=== PATIENT | male | born 1985 | race African-American/Black ===

== ENCOUNTER 2019-06-19 15:53 | Inpatient (IN) ==
[2019-06-19] MEDS ORDERED: ONDANSETRON 4 MG/2 ML VIAL IV PRN (20:06)
[2019-06-19] MEDS ORDERED: ACETAMINOPHEN 325 MG TABLET PO PRN (20:06)
[2019-06-19] MEDS ORDERED: FUROSEMIDE 40 MG/4 ML VIAL ONE (20:09)
[2019-06-19] MEDS ORDERED: FUROSEMIDE 40 MG/4 ML VIAL IV ONE ×2 (20:11→20:20)
[2019-06-19] MEDS: ALBUTEROL/IPRATROPIUM 3 ML NEB RESP TX SCH ×2 (20:15→23:30)
[2019-06-19] MEDS ORDERED: MORPHINE 4 MG/1 ML VIAL ONE (20:29)
[2019-06-19] MEDS ORDERED: MORPHINE 4 MG/1 ML VIAL IV ONE ×2 (20:30)
[2019-06-19] MEDS ORDERED: hydrALAZINE 20 MG/1 ML VIAL IV PRN (20:40)
[2019-06-19] MEDS ORDERED: NITROGLYCERIN DRIP 50 MG/250 ML BOTTLE IV ONE (20:52)
[2019-06-19] MEDS ORDERED: METOCLOPRAMIDE 10 MG/2 ML VIAL ONE (20:53)
[2019-06-19] MEDS ORDERED: cefTRIAXone 2,000 MG in SYRINGE 1 EACH IV SCH (21:00)
[2019-06-19] MEDS ORDERED: PROMETHAZINE 25 MG/1 ML VIAL IM ONE (21:04)
[2019-06-19] MEDS ORDERED: METOCLOPRAMIDE 10 MG/2 ML VIAL IV ONE (21:04)
[2019-06-19] MEDS ORDERED: NITROGLYCERIN DRIP 50 MG/250 ML BOTTLE IV PRN (21:04)
[2019-06-19] MEDS ORDERED: PROMETHAZINE 25 MG/1 ML VIAL ONE (21:05)
[2019-06-19] MEDS ORDERED: VECURONIUM 10 MG VIAL IV ONE (21:09)
[2019-06-19] MEDS ORDERED: ETOMIDATE 20 MG/10 ML VIAL IV ONE (21:09)
[2019-06-19] MEDS: PROPOFOL 1,000 MG/100 ML BOTTLE IV SCH (21:32)
[2019-06-19] MEDS ORDERED: PROPOFOL 1,000 MG/100 ML BOTTLE IV ONE (21:34)
[2019-06-19] MEDS ORDERED: PROPOFOL 200 MG/20 ML VIAL IV ONE (21:38)
[2019-06-19 21:58] LABS: Basophils # 0.1 10*3/uL (0.0-0.2); Basophils % 0.5 % (0.0-0.8); Hematocrit 31.3 VOL% (42.0-52.0); Hemoglobin 9.1 GM/DL (14.0-18.0); Immature Granulocytes % 1.8 %; Immature Granulocytes Absolute 0.19 #; Lymphocytes # 2.5 10*3/uL (1.4-4.0); Lymphocytes % 23.6 % (21.2-54.2); Mean Corpuscular HGB Conc 29.1 GM/DL (32-36); Mean Platelet Volume 11.2 FL (9.6-12.0); NRBC # 0.23 10*3/uL; Neutrophils % 69.1 % (38.7-73.9); Platelet Count 163 T/CUMM (130-400); Red Blood Count 3.04 MC/CUMM (3.8-5.5); Red Cell Distribution Width 15.6 % (9.3-17.3); White Blood Count 10.7 T/CUMM (4-12)
[2019-06-19] MEDS ORDERED: AZITHROMYCIN INJ 500 MG in SODIUM CHLORIDE 0.9% 250 ML IV SCH (22:00)
[2019-06-19] MEDS ORDERED: PIPERACILLIN/TAZOBACTAM 2,250 MG in SODIUM CHLORIDE 0.9% 100 ML IV SCH (22:00)
[2019-06-19 22:12] LABS: ABG Base Excess -11.4 MMOL/L (-2.5-2.5); ABG HCO3 15.5 MMOL/L (20-26); ABG Oxygen Saturation 96.6 % (95-100); ABG TCO2 19.5 MMOL/L (23-27); Allen Test Positive; Pt O2 Delivery Device Ventilator
[2019-06-19 22:16] LABS: ABG PH 7.063 (7.35-7.45)
[2019-06-19 22:17] LABS: ABG PCO2 71.6 MM HG (35-48)
[2019-06-19 22:28] LABS: Albumin 2.7 G/DL (3.4-5.0); Bilirubin,Total 0.5 MG/DL (0.2-1.0); Calcium 7.5 MG/DL (8.5-10.1); Osmolality,Calculated 299.5 MOS/KG (273-304)
[2019-06-19] MEDS ORDERED: DILTIAZEM 25 MG/5 ML VIAL IV ONE ×2 (22:43→23:00)
[2019-06-19] MEDS ORDERED: SODIUM BICARBONATE 50 MEQ/50 ML VIAL IV ONE (22:43)
[2019-06-19] MEDS: HEPARIN 5,000 UNIT/1 ML VIAL SUBCUT SCH (22:53)
[2019-06-19 22:57] LABS: ABG Base Excess 0.7 MMOL/L (-2.5-2.5); ABG Oxygen Saturation 94.6 % (95-100); ABG PH 7.212 (7.35-7.45); ABG PO2 97.2 MM HG (80-95); ABG TCO2 28.6 MMOL/L (23-27)
[2019-06-19 22:59] LABS: ABG PCO2 74.2 MM HG (35-48)
[2019-06-19] MEDS: PIPERACILLIN/TAZOBACTAM 3,375 MG in SODIUM CHLORIDE 0.9% 100 ML IV SCH (23:01)
[2019-06-19] MEDS ORDERED: PHENYLEPHRINE INJ 160 MG in SODIUM CHLORIDE 0.9% 234 ML IV PRN (23:19)
[2019-06-19] MEDS ORDERED: PHENYLEPHRINE DRIP 40 MG/250 ML PREMIX IV ONE (23:19)
[2019-06-19] MEDS ORDERED: PHENYLEPHRINE DRIP 40 MG/250 ML PREMIX IV PRN (23:19)
[2019-06-19] MEDS ORDERED: NOREPINEPHRINE 4 MG/4 ML VIAL IV ONE (23:23)
[2019-06-19] MEDS ORDERED: EPINEPHrine 1 MG/10 ML SYRINGE ONE (23:23)
[2019-06-19] MEDS: NOREPINEPHRINE 16 MG in SODIUM CHLORIDE 0.9% 234 ML IV PRN (23:25)
[2019-06-19] MEDS ORDERED: EPINEPHrine 1 MG/ML VIAL ONE (23:25)
[2019-06-19] MEDS ORDERED: MIDAZOLAM 10 MG/2 ML VIAL ONE (23:37)
[2019-06-19] MEDS ORDERED: ALBUMIN 25% 25 GM in PREMIX 1 EACH IV ONE (23:42)
[2019-06-20] MEDS ORDERED: ATROPINE 1 MG/10 ML SYRINGE IV ONE (00:08)
[2019-06-20] MEDS ORDERED: SODIUM BICARBONATE 50 MEQ/50 ML VIAL IV ONE ×4 (00:08→05:57)
[2019-06-20] MEDS ORDERED: MIDAZOLAM 10 MG/2 ML VIAL IV ONE (00:11)
[2019-06-20] MEDS ORDERED: CALCIUM CHLORIDE 1,000 MG/10 ML SYRINGE IV ONE ×3 (00:11→06:53)
[2019-06-20 00:28] LABS: ABG Base Excess -2.6 MMOL/L (-2.5-2.5); ABG HCO3 24.1 MMOL/L (20-26); ABG Oxygen Saturation 90.2 % (95-100); ABG PCO2 51.8 MM HG (35-48); ABG PH 7.286 (7.35-7.45); ABG PO2 76.6 MM HG (80-95); ABG TCO2 25.7 MMOL/L (23-27)
[2019-06-20] MEDS ORDERED: AMIODARONE INJ 150 MG in DEXTROSE 5% 100 ML IV ONE (01:00)
[2019-06-20] MEDS ORDERED: AMIODARONE INJ 450 MG in DEXTROSE 5% 241 ML IV SCH ×4 (01:10→23:30)
[2019-06-20] MEDS: methylPREDNISolone SOD SUC 40 MG/1 ML VIAL IV SCH ×2 (01:20→12:51)
[2019-06-20] MEDS ORDERED: VANCOMYCIN INJ 1,000 MG in SODIUM CHLORIDE 0.9% 250 ML IV ONE (01:30)
[2019-06-20] MEDS ORDERED: SULFAMETH/TRIMETH INJ 200 MG in DEXTROSE 5% 250 ML IV SCH (02:00)
[2019-06-20] MEDS: ALBUTEROL/IPRATROPIUM 3 ML NEB RESP TX SCH ×6 (02:24→23:12)
[2019-06-20 03:38] LABS: ABG Base Excess -3.9 MMOL/L (-2.5-2.5); ABG HCO3 21.1 MMOL/L (20-26); ABG Oxygen Saturation 98.9 % (95-100); ABG PCO2 37.9 MM HG (35-48); ABG PH 7.364 (7.35-7.45); ABG PO2 283.1 MM HG (80-95); ABG TCO2 22.3 MMOL/L (23-27)
[2019-06-20 03:43] LABS: Basophils % 0.2 % (0.0-0.8); Hematocrit 25.1 VOL% (42.0-52.0); Hemoglobin 7.8 GM/DL (14.0-18.0); Immature Granulocytes % 5.2 %; Immature Granulocytes Absolute 0.68 #; Lymphocytes # 0.8 10*3/uL (1.4-4.0); Lymphocytes % 6.1 % (21.2-54.2); Mean Corpuscular HGB Conc 31.1 GM/DL (32-36); Mean Corpuscular Volume 99.2 FL (87-102); Mean Platelet Volume 11.2 FL (9.6-12.0); Monocytes % 6.1 % (1.7-12.7); NRBC # 0.39 10*3/uL; Neutrophils % 82.4 % (38.7-73.9); Platelet Count 134 T/CUMM (130-400); Red Blood Count 2.53 MC/CUMM (3.8-5.5); Red Cell Distribution Width 15.3 % (9.3-17.3)
[2019-06-20 04:03] LABS: Band Neutrophils 2 % (0-10); Lymphocytes 1 % (20-55); Nucleated Red Blood Cells 6 (0-5); Segmented Neutrophils 89 % (50-85); Total Cells Counted 100
[2019-06-20 04:04] LABS: Hypochromasia 1+; Macrocytosis Slight; Ovalocytes Slight; Platelet Estimate Normal
[2019-06-20 04:43] LABS: Calcium 7.7 MG/DL (8.5-10.1); Osmolality,Calculated 300.8 MOS/KG (273-304)
[2019-06-20] MEDS ORDERED: CALCIUM GLUCONATE 1,000 MG/10 ML VIAL IV ONE (04:49)
[2019-06-20] MEDS ORDERED: SODIUM CHLORIDE 0.9% 0 ML IV ONE (04:50)
[2019-06-20] MEDS ORDERED: DEXTROSE 5% IV ONE (06:00)
[2019-06-20] MEDS ORDERED: INSULIN REGULAR IV ONE (06:00)
[2019-06-20] MEDS ORDERED: SODIUM BICARB IV ONE (06:00)
[2019-06-20] MEDS ORDERED: NACL 0.45% IV ONE (06:00)
[2019-06-20] MEDS: PROPOFOL 1,000 MG/100 ML BOTTLE IV SCH ×5 (06:01→23:52)
[2019-06-20] MEDS: HEPARIN 5,000 UNIT/1 ML VIAL SUBCUT SCH ×3 (06:17→13:34)
[2019-06-20] MEDS: NOREPINEPHRINE 16 MG in SODIUM CHLORIDE 0.9% 234 ML IV PRN (08:15)
[2019-06-20] MEDS ORDERED: ASPIRIN EC 81 MG TABLET PO SCH (09:00)
[2019-06-20 09:07] LABS: Hepatitis B Core IgM Quant 0.17 Index; Hepatitis B Surface Ag Quant < 0.10 Index; Hepatitis B Surface Ag Result Negative (Negative); Hepatitis C Virus Ab Quant < 0.02 Index; Hepatitis C Virus Ab Result Negative (Negative)
[2019-06-20] MEDS: PIPERACILLIN/TAZOBACTAM 3,375 MG in SODIUM CHLORIDE 0.9% 100 ML IV SCH ×2 (10:37→22:23)
[2019-06-20] MEDS: ASPIRIN CHEW 81 MG TABLET PO SCH (10:37)
[2019-06-20] MEDS ORDERED: DEXTROSE 50% 25 GM/50 ML VIAL IV PRN (14:51)
[2019-06-20] MEDS ORDERED: GLUCAGON 1 MG VIAL IM PRN (14:51)
[2019-06-20] MEDS: INSULIN REGULAR 100 UNIT/ML SUBCUT SCH (17:42)
[2019-06-20] MEDS ORDERED: LORazepam 2 MG/1 ML VIAL IV PRN (23:47)
[2019-06-21] MEDS: INSULIN REGULAR 100 UNIT/ML SUBCUT SCH ×4 (01:02→18:28)
[2019-06-21] MEDS: methylPREDNISolone SOD SUC 40 MG/1 ML VIAL IV SCH ×2 (01:32→14:01)
[2019-06-21] MEDS: HEPARIN 5,000 UNIT/1 ML VIAL SUBCUT SCH ×2 (02:21→13:53)
[2019-06-21] MEDS: ALBUTEROL/IPRATROPIUM 3 ML NEB RESP TX SCH ×6 (02:27→23:30)
[2019-06-21 03:23] LABS: Basophils % 0.2 % (0.0-0.8); Hematocrit 27.7 VOL% (42.0-52.0); Immature Granulocytes Absolute 0.32 #; Lymphocytes # 0.9 10*3/uL (1.4-4.0); Lymphocytes % 5.8 % (21.2-54.2); Mean Corpuscular HGB Conc 32.5 GM/DL (32-36); Mean Corpuscular Volume 93.9 FL (87-102); Mean Platelet Volume 10.9 FL (9.6-12.0); Monocytes % 3.8 % (1.7-12.7); NRBC # 0.77 10*3/uL; Neutrophils % 88.2 % (38.7-73.9); Red Blood Count 2.95 MC/CUMM (3.8-5.5); Red Cell Distribution Width 16.6 % (9.3-17.3); White Blood Count 15.9 T/CUMM (4-12)
[2019-06-21 03:26] LABS: ABG Base Excess -1.1 MMOL/L (-2.5-2.5); ABG HCO3 22.7 MMOL/L (20-26); ABG Oxygen Saturation 98.9 % (95-100); ABG PCO2 35.1 MM HG (35-48); ABG PH 7.429 (7.35-7.45); ABG PO2 232.3 MM HG (80-95); ABG TCO2 23.8 MMOL/L (23-27)
[2019-06-21 03:37] LABS: Platelet Count 79 T/CUMM (130-400)
[2019-06-21 03:46] LABS: Calcium 7.7 MG/DL (8.5-10.1)
[2019-06-21] MEDS: PROPOFOL 1,000 MG/100 ML BOTTLE IV SCH ×8 (04:00→23:50)
[2019-06-21] MEDS ORDERED: SODIUM BICARBONATE 50 MEQ/50 ML VIAL IV ONE (04:06)
[2019-06-21] MEDS ORDERED: CALCIUM CHLORIDE 1,000 MG/10 ML SYRINGE IV ONE (04:09)
[2019-06-21 04:17] LABS: Platelet Estimate Decreased
[2019-06-21 04:19] LABS: Hypochromasia Slight; Polychromasia Few
[2019-06-21 04:21] LABS: Prealbumin 25.4 MG/DL (20-40)
[2019-06-21 05:16] LABS: Amorphous Crystals,Urine Occasional /HPF (Few); Bacteria,Urine Occasional /HPF (Few); Bilirubin,Urine Negative (Negative); Blood, Urine Moderate mg/dL (Negative); Glucose,Urine (UA) 50 mg/dL (Negative); Ketones,Urine Negative (Negative); Mucus,Urine Occasional /LPF (Occasional); Nitrite,Urine Negative (Negative); Protein,Urine >=500 MG/DL; RBC,Urine 13 /HPF (0-4); Squamous Epithelial Cell,Urine Occasional /HPF (0-10); Urine Specific Gravity 1.034 (1.001-1.035); Urine Urobilinogen < 2.0 EU/DL (0.2-1.0); WBC,Urine 12 /HPF (0-6)
[2019-06-21 05:28] LABS: Apearance,Urine Slightly Hazy (Clear); Urine Color Yellow (Yellow)
[2019-06-21] MEDS ORDERED: LORazepam 2 MG/1 ML VIAL ONE (08:39)
[2019-06-21] MEDS: PIPERACILLIN/TAZOBACTAM 3,375 MG in SODIUM CHLORIDE 0.9% 100 ML IV SCH ×2 (09:27→22:35)
[2019-06-21] MEDS: ASPIRIN CHEW 81 MG TABLET PO SCH (09:27)
[2019-06-21] MEDS: CARVEDILOL 3.125 MG TABLET PO SCH ×2 (09:27→20:32)
[2019-06-21] MEDS: LOSARTAN 25 MG TABLET PO SCH ×2 (13:55→20:32)
[2019-06-21 17:51] LABS: % CD4 (T Cells) 4 % (32-64); % CD8 (T Cells) 42 % (15-40); 4/8 Ratio 0.1 (>=0.9)
[2019-06-22] MEDS: INSULIN REGULAR 100 UNIT/ML SUBCUT SCH ×4 (00:52→18:13)
[2019-06-22] MEDS: methylPREDNISolone SOD SUC 40 MG/1 ML VIAL IV SCH ×2 (01:12→13:52)
[2019-06-22] MEDS: HEPARIN 5,000 UNIT/1 ML VIAL SUBCUT SCH ×2 (01:14→13:52)
[2019-06-22] MEDS: ALBUTEROL/IPRATROPIUM 3 ML NEB RESP TX SCH ×6 (02:03→23:46)
[2019-06-22] MEDS: PROPOFOL 1,000 MG/100 ML BOTTLE IV SCH ×4 (03:11→14:51)
[2019-06-22 03:46] LABS: Basophils % 0.2 % (0.0-0.8); Hematocrit 27.6 VOL% (42.0-52.0); Hemoglobin 8.6 GM/DL (14.0-18.0); Immature Granulocytes % 3.7 %; Immature Granulocytes Absolute 0.73 #; Lymphocytes # 0.5 10*3/uL (1.4-4.0); Lymphocytes % 2.4 % (21.2-54.2); Mean Corpuscular HGB Conc 31.2 GM/DL (32-36); Mean Corpuscular Volume 95.8 FL (87-102); Mean Platelet Volume 12.5 FL (9.6-12.0); Monocytes % 2.3 % (1.7-12.7); NRBC # 1.79 10*3/uL; Neutrophils % 91.4 % (38.7-73.9); Platelet Count 112 T/CUMM (130-400); Red Blood Count 2.88 MC/CUMM (3.8-5.5); Red Cell Distribution Width 16.4 % (9.3-17.3); White Blood Count 19.5 T/CUMM (4-12)
[2019-06-22 04:15] LABS: Calcium 7.9 MG/DL (8.5-10.1); Osmolality,Calculated 287.2 MOS/KG (273-304)
[2019-06-22 04:27] LABS: Lymphocytes 2 % (20-55); Nucleated Red Blood Cells 7 (0-5); Platelet Estimate Decreased; Polychromasia Few; Segmented Neutrophils 97 % (50-85); Total Cells Counted 100
[2019-06-22] MEDS ORDERED: SODIUM BICARBONATE 50 MEQ/50 ML VIAL IV ONE (04:37)
[2019-06-22 09:09] LABS: ABG Base Excess 2.9 MMOL/L (-2.5-2.5); ABG PCO2 34.1 MM HG (35-48); ABG PO2 90.6 MM HG (80-95); ABG TCO2 23.3 MMOL/L (23-27)
[2019-06-22] MEDS: CARVEDILOL 3.125 MG TABLET PO SCH ×2 (10:27→21:16)
[2019-06-22] MEDS: ASPIRIN CHEW 81 MG TABLET PO SCH (10:27)
[2019-06-22] MEDS: PIPERACILLIN/TAZOBACTAM 3,375 MG in SODIUM CHLORIDE 0.9% 100 ML IV SCH ×2 (10:27→21:48)
[2019-06-22] MEDS: LOSARTAN 25 MG TABLET PO SCH ×2 (13:52→21:16)
[2019-06-23] MEDS: INSULIN REGULAR 100 UNIT/ML SUBCUT SCH ×2 (01:07→06:25)
[2019-06-23] MEDS: PROPOFOL 1,000 MG/100 ML BOTTLE IV SCH (01:07)
[2019-06-23] MEDS: methylPREDNISolone SOD SUC 40 MG/1 ML VIAL IV SCH ×3 (01:08→21:29)
[2019-06-23] MEDS: HEPARIN 5,000 UNIT/1 ML VIAL SUBCUT SCH ×2 (01:08→12:49)
[2019-06-23 04:49] LABS: Basophils # 0.1 10*3/uL (0.0-0.2); Basophils % 0.5 % (0.0-0.8); Hematocrit 26.2 VOL% (42.0-52.0); Hemoglobin 8.2 GM/DL (14.0-18.0); Immature Granulocytes % 7.1 %; Immature Granulocytes Absolute 1.61 #; Lymphocytes # 0.6 10*3/uL (1.4-4.0); Lymphocytes % 2.7 % (21.2-54.2); Mean Corpuscular HGB Conc 31.3 GM/DL (32-36); Mean Corpuscular Volume 95.6 FL (87-102); Mean Platelet Volume 12.7 FL (9.6-12.0); Monocytes % 6.1 % (1.7-12.7); Neutrophils % 83.6 % (38.7-73.9); Platelet Count 139 T/CUMM (130-400); Red Blood Count 2.74 MC/CUMM (3.8-5.5); Red Cell Distribution Width 16.2 % (9.3-17.3); White Blood Count 22.6 T/CUMM (4-12)
[2019-06-23 05:05] LABS: Calcium 8.3 MG/DL (8.5-10.1)
[2019-06-23] MEDS: ALBUTEROL/IPRATROPIUM 3 ML NEB RESP TX SCH ×6 (05:20→22:42)
[2019-06-23 06:33] LABS: Band Neutrophils 2 % (0-10); Eosinophils 1 % (0-10); Lymphocytes 4 % (20-55); Nucleated Red Blood Cells 33 (0-5); Platelet Estimate Adequate; Segmented Neutrophils 88 % (50-85); Total Cells Counted 100
[2019-06-23 06:34] LABS: Anisocytosis 3+; Ovalocytes Few
[2019-06-23 06:35] LABS: Poikilocytosis 1+
[2019-06-23] MEDS: LOSARTAN 25 MG TABLET PO SCH ×2 (10:02→21:29)
[2019-06-23] MEDS: AMOXICILLIN/CLAV 500 MG TABLET PO SCH ×3 (10:02→21:29)
[2019-06-23] MEDS: ASPIRIN CHEW 81 MG TABLET PO SCH (10:02)
[2019-06-23] MEDS: CARVEDILOL 3.125 MG TABLET PO SCH ×2 (10:02→21:29)
[2019-06-23] MEDS ORDERED: ZALEPLON 5 MG CAPSULE PO PRN (22:45)
[2019-06-24] MEDS: CALCIUM CARBONATE CHEW 500 MG TABLET PO PRN ×2 (00:01→14:54)
[2019-06-24] MEDS: ALBUTEROL/IPRATROPIUM 3 ML NEB RESP TX SCH ×5 (02:36→15:44)
[2019-06-24] MEDS: HEPARIN 5,000 UNIT/1 ML VIAL SUBCUT SCH ×2 (02:40→13:40)
[2019-06-24 05:48] LABS: Basophils # 0.1 10*3/uL (0.0-0.2); Basophils % 0.4 % (0.0-0.8); Hematocrit 23.9 VOL% (42.0-52.0); Hemoglobin 7.8 GM/DL (14.0-18.0); Immature Granulocytes % 14.6 %; Immature Granulocytes Absolute 3.65 #; Lymphocytes # 0.4 10*3/uL (1.4-4.0); Lymphocytes % 1.8 % (21.2-54.2); Mean Corpuscular HGB Conc 32.6 GM/DL (32-36); Mean Corpuscular Volume 94.5 FL (87-102); Mean Platelet Volume 11.6 FL (9.6-12.0); Monocytes % 11.3 % (1.7-12.7); NRBC # 13.29 10*3/uL; Neutrophils % 71.9 % (38.7-73.9); Platelet Count 130 T/CUMM (130-400); Red Blood Count 2.53 MC/CUMM (3.8-5.5); Red Cell Distribution Width 16.3 % (9.3-17.3); White Blood Count 25.1 T/CUMM (4-12)
[2019-06-24 06:06] LABS: Band Neutrophils 1 % (0-10); Hypochromasia 2+; Lymphocytes 10 % (20-55); Nucleated Red Blood Cells 59 (0-5); Ovalocytes Slight; Segmented Neutrophils 81 % (50-85); Total Cells Counted 100
[2019-06-24 06:07] LABS: Platelet Estimate Adequate
[2019-06-24 06:20] LABS: Calcium 7.8 MG/DL (8.5-10.1); Osmolality,Calculated 305.8 MOS/KG (273-304)
[2019-06-24] MEDS: CARVEDILOL 3.125 MG TABLET PO SCH (09:04)
[2019-06-24] MEDS: ASPIRIN CHEW 81 MG TABLET PO SCH (09:04)
[2019-06-24] MEDS: AMOXICILLIN/CLAV 500 MG TABLET PO SCH (09:04)
[2019-06-24] MEDS: methylPREDNISolone SOD SUC 40 MG/1 ML VIAL IV SCH (09:05)
[2019-06-24] MEDS: LOSARTAN 25 MG TABLET PO SCH (09:05)
[2019-06-24 16:32] VITALS: BP 153/94
[2019-06-24] MEDS ORDERED: AMOXICILLIN/CLAV 500 MG TABLET PO SCH (17:00)
== END 2019-06-24 17:39 | disposition home or self-care (01) | DRG 291 ==
LOC: N.TELES → SUATTDRO 20:06 → N.CC 21:45 → N.5E 06-23 15:52
PROVIDERS: ADMIT Internal Medicine; ATTEND Hospitalist

== ENCOUNTER 2019-06-26 02:07 | Inpatient (IN) ==
[2019-06-26 02:55] LABS: Basophils # 0.1 10*3/uL (0.0-0.2); Basophils % 0.4 % (0.0-0.8); Hematocrit 24.7 VOL% (42.0-52.0); Hemoglobin 7.7 GM/DL (14.0-18.0); Immature Granulocytes % 14.1 %; Immature Granulocytes Absolute 3.47 #; Lymphocytes # 0.4 10*3/uL (1.4-4.0); Lymphocytes % 1.8 % (21.2-54.2); Mean Corpuscular HGB Conc 31.2 GM/DL (32-36); Mean Corpuscular Volume 99.2 FL (87-102); Monocytes % 14.5 % (1.7-12.7); NRBC # 10.19 10*3/uL; Neutrophils % 69.2 % (38.7-73.9); Red Blood Count 2.49 MC/CUMM (3.8-5.5); Red Cell Distribution Width 17.6 % (9.3-17.3); White Blood Count 24.6 T/CUMM (4-12)
[2019-06-26 02:56] LABS: Platelet Count 82 T/CUMM (130-400)
[2019-06-26 03:21] LABS: Albumin 2.5 G/DL (3.4-5.0); Bilirubin,Total 0.6 MG/DL (0.2-1.0); Calcium 7.9 MG/DL (8.5-10.1); Osmolality,Calculated 306.1 MOS/KG (273-304); Total Protein 6.4 G/DL (6.4-8.3)
[2019-06-26] MEDS ORDERED: CEFEPIME 2,000 MG in SODIUM CHLORIDE 0.9% 100 ML IV STA (03:23)
[2019-06-26] MEDS ORDERED: VANCOMYCIN INJ 1,000 MG in SODIUM CHLORIDE 0.9% 250 ML IV STA ×2 (03:24→03:27)
[2019-06-26] MEDS ORDERED: MORPHINE 4 MG/1 ML VIAL IV STA (03:24)
[2019-06-26 03:25] LABS: Hypochromasia 1+; Lymphocytes 7 % (20-55); Metamyelocytes 3 %; Myelocytes 5 %; Nucleated Red Blood Cells 53 (0-5); Platelet Estimate Decreased; Segmented Neutrophils 71 % (50-85)
[2019-06-26] MEDS ORDERED: ONDANSETRON 4 MG/2 ML VIAL IV STA (03:25)
[2019-06-26 03:26] LABS: Polychromasia 1+
[2019-06-26 03:27] LABS: Ovalocytes 1+
[2019-06-26 03:28] LABS: Total Cells Counted 100
[2019-06-26] MEDS ORDERED: LIDOCAINE 1%/EPI INJ 20 ML VIAL ONE (03:36)
[2019-06-26 03:52] LABS: INR 1.1; PT Patient Result 11.7 SECS (9.6-12.2); Partial Thromboplastin Time 29.6 SECS (20.8-36.0)
[2019-06-26] MEDS: MORPHINE 4 MG/1 ML VIAL IV PRN ×3 (08:09→20:29)
[2019-06-26] MEDS: ONDANSETRON 4 MG/2 ML VIAL IV PRN (08:09)
[2019-06-26] MEDS ORDERED: PANTOPRAZOLE 40 MG TABLET PO SCH (09:00)
[2019-06-26] MEDS ORDERED: ENOXAPARIN 40 MG/0.4 ML SYRINGE SUBCUT SCH (09:00)
[2019-06-26] MEDS ORDERED: EPOETIN ALFA 10,000 UNIT/1 ML VIAL IV PRN (09:41)
[2019-06-26] MEDS: ASPIRIN EC 81 MG TABLET PO SCH (16:26)
[2019-06-26] MEDS: TAMSULOSIN 0.4 MG CAPSULE PO SCH (16:26)
[2019-06-26] MEDS: ACETAMINOPHEN 500 MG TABLET PO PRN (16:26)
[2019-06-26] MEDS: FLUCONAZOLE 100 MG TABLET PO SCH (16:26)
[2019-06-26] MEDS ORDERED: BENZONATATE 100 MG CAPSULE PO PRN (17:00)
[2019-06-26 17:53] LABS: Apearance,Urine CLOUDY (Clear); Bacteria,Urine Occasional /HPF (Few); Bilirubin,Urine Negative (Negative); Blood, Urine Small mg/dL (Negative); Glucose,Urine (UA) 50 mg/dL (Negative); Ketones,Urine Negative (Negative); Mucus,Urine Occasional /LPF (Occasional); Nitrite,Urine Negative (Negative); Protein,Urine >=500 MG/DL; RBC,Urine 16 /HPF (0-4); Squamous Epithelial Cell,Urine Occasional /HPF (0-10); Urine Color Dark yellow (Yellow); Urine Specific Gravity 1.029 (1.001-1.035); Urine Urobilinogen < 2.0 EU/DL (0.2-1.0); WBC,Urine 31 /HPF (0-6)
[2019-06-26] MEDS: CARVEDILOL 3.125 MG TABLET PO SCH (20:34)
[2019-06-26] MEDS: PANTOPRAZOLE 40 MG TABLET PO SCH (20:34)
[2019-06-26] MEDS: SULFAMETHOX/TRIMETHOPRIM 800-160 MG TABLET PO SCH (20:35)
[2019-06-26] MEDS: LOSARTAN 25 MG TABLET PO SCH (20:35)
[2019-06-26 20:46] LABS: Hepatitis B Core IgM Quant 0.17 Index; Hepatitis B Surface Ag Quant < 0.10 Index; Hepatitis B Surface Ag Result Negative (Negative); Hepatitis C Virus Ab Quant 0.09 Index; Hepatitis C Virus Ab Result Negative (Negative)
[2019-06-27] MEDS: MORPHINE 4 MG/1 ML VIAL IV PRN ×4 (01:31→21:20)
[2019-06-27] MEDS: CEFEPIME 1,000 MG in SODIUM CHLORIDE 0.9% 100 ML IV SCH (04:43)
[2019-06-27 07:30] LABS: Albumin 2.1 G/DL (3.4-5.0); Bilirubin,Total 0.6 MG/DL (0.2-1.0); Calcium 7.8 MG/DL (8.5-10.1); Osmolality,Calculated 286.8 MOS/KG (273-304)
[2019-06-27 07:33] LABS: Basophils % 0.2 % (0.0-0.8); Hematocrit 20.5 VOL% (42.0-52.0); Immature Granulocytes % 7.3 %; Immature Granulocytes Absolute 1.38 #; Lymphocytes # 0.5 10*3/uL (1.4-4.0); Lymphocytes % 2.5 % (21.2-54.2); Mean Corpuscular HGB Conc 31.2 GM/DL (32-36); Mean Platelet Volume 12.6 FL (9.6-12.0); Monocytes % 17.8 % (1.7-12.7); NRBC # 1.88 10*3/uL; Neutrophils % 72.2 % (38.7-73.9); Red Blood Count 2.05 MC/CUMM (3.8-5.5); Red Cell Distribution Width 18.3 % (9.3-17.3); White Blood Count 18.9 T/CUMM (4-12)
[2019-06-27 07:38] LABS: Hemoglobin 6.4 GM/DL (14.0-18.0); Platelet Count 60 T/CUMM (130-400)
[2019-06-27 07:59] LABS: Hypochromasia 2+; Lymphocytes 5 % (20-55); Nucleated Red Blood Cells 16 (0-5); Platelet Estimate Decreased; Segmented Neutrophils 80 % (50-85); Total Cells Counted 100
[2019-06-27] MEDS ORDERED: SODIUM CHLORIDE 0.9% 1,000 ML IV PRN (08:00)
[2019-06-27] MEDS ORDERED: FUROSEMIDE 20 MG/2 ML VIAL IV PRN (08:01)
[2019-06-27] MEDS: CARVEDILOL 3.125 MG TABLET PO SCH ×2 (08:10→17:36)
[2019-06-27] MEDS: LOSARTAN 25 MG TABLET PO SCH ×2 (08:10→21:27)
[2019-06-27] MEDS: ASPIRIN EC 81 MG TABLET PO SCH (08:10)
[2019-06-27] MEDS: TAMSULOSIN 0.4 MG CAPSULE PO SCH (08:10)
[2019-06-27] MEDS: PANTOPRAZOLE 40 MG TABLET PO SCH ×2 (08:11→21:27)
[2019-06-27] MEDS: ACETAMINOPHEN 500 MG TABLET PO PRN ×2 (08:11→16:12)
[2019-06-27] MEDS: FLUCONAZOLE 100 MG TABLET PO SCH (08:11)
[2019-06-27 20:35] LABS: Hematocrit 20.2 VOL% (42.0-52.0); Hemoglobin 6.5 GM/DL (14.0-18.0)
[2019-06-28] MEDS: MORPHINE 4 MG/1 ML VIAL IV PRN ×3 (04:52→21:28)
[2019-06-28 05:22] LABS: Basophils % 0.1 % (0.0-0.8); Immature Granulocytes % 3.7 %; Immature Granulocytes Absolute 0.55 #; Lymphocytes # 0.6 10*3/uL (1.4-4.0); Lymphocytes % 4.1 % (21.2-54.2); Mean Corpuscular Volume 97.6 FL (87-102); Mean Platelet Volume 12.2 FL (9.6-12.0); Monocytes % 22.5 % (1.7-12.7); NRBC # 0.57 10*3/uL; Neutrophils % 69.6 % (38.7-73.9); Platelet Count 60 T/CUMM (130-400); Red Blood Count 2.05 MC/CUMM (3.8-5.5); Red Cell Distribution Width 17.1 % (9.3-17.3); White Blood Count 14.8 T/CUMM (4-12)
[2019-06-28 05:35] LABS: Hemoglobin 6.4 GM/DL (14.0-18.0)
[2019-06-28] MEDS ORDERED: SODIUM CHLORIDE 0.9% 1,000 ML IV PRN (05:50)
[2019-06-28 05:51] LABS: Lymphocytes 7 % (20-55); Nucleated Red Blood Cells 2 (0-5); Platelet Estimate Decreased; Segmented Neutrophils 71 % (50-85); Total Cells Counted 100
[2019-06-28 05:52] LABS: Hypochromasia 2+; Ovalocytes Slight
[2019-06-28 05:54] LABS: Calcium 7.4 MG/DL (8.5-10.1); Osmolality,Calculated 285.2 MOS/KG (273-304)
[2019-06-28 06:12] LABS: % Iron Saturation 12.4 % (18-50); Ferritin 3563.8 ng/ml (26-388)
[2019-06-28 06:40] LABS: Folate 9.5 NG/ML (5.4-24.0); Vitamin B12 > 2000 PG/ML (211-911)
[2019-06-28] MEDS: ONDANSETRON 4 MG/2 ML VIAL IV PRN ×2 (06:54→21:28)
[2019-06-28] MEDS ORDERED: SODIUM CHLORIDE 0.9% 1,000 ML IV SCH (07:36)
[2019-06-28 07:42] LABS: Sedimentation Rate-Westergren 135 MM/HR (0-15)
[2019-06-28] MEDS ORDERED: MIDAZOLAM 2 MG/2 ML VIAL ONE (08:38)
[2019-06-28 09:44] LABS: Hemoglobin A1 (Alkaline) 97.5 % (96.5-98.5); Hemoglobin A2 (Alkaline) 2.5 % (1.5-3.5)
[2019-06-28] MEDS: ASPIRIN EC 81 MG TABLET PO SCH (10:09)
[2019-06-28] MEDS: CARVEDILOL 3.125 MG TABLET PO SCH ×2 (10:09→17:03)
[2019-06-28] MEDS: FLUCONAZOLE 100 MG TABLET PO SCH (10:10)
[2019-06-28] MEDS: TAMSULOSIN 0.4 MG CAPSULE PO SCH (10:10)
[2019-06-28] MEDS: LOSARTAN 25 MG TABLET PO SCH ×2 (10:10→20:16)
[2019-06-28] MEDS: PANTOPRAZOLE 40 MG TABLET PO SCH ×2 (10:10→20:16)
[2019-06-28] MEDS: ACETAMINOPHEN 500 MG TABLET PO PRN (17:03)
[2019-06-28] MEDS: CEFEPIME 1,000 MG in SODIUM CHLORIDE 0.9% 100 ML IV SCH (17:12)
[2019-06-28] MEDS: SULFAMETHOX/TRIMETHOPRIM 800-160 MG TABLET PO SCH (20:16)
[2019-06-29] MEDS: ONDANSETRON 4 MG/2 ML VIAL IV PRN (07:28)
[2019-06-29] MEDS: PANTOPRAZOLE 40 MG TABLET PO SCH ×2 (08:38→20:41)
[2019-06-29] MEDS: TAMSULOSIN 0.4 MG CAPSULE PO SCH (08:38)
[2019-06-29] MEDS: CARVEDILOL 3.125 MG TABLET PO SCH ×2 (08:38→17:06)
[2019-06-29] MEDS: FLUCONAZOLE 100 MG TABLET PO SCH (08:38)
[2019-06-29] MEDS: LOSARTAN 25 MG TABLET PO SCH ×2 (08:38→20:40)
[2019-06-29] MEDS: ASPIRIN EC 81 MG TABLET PO SCH (08:38)
[2019-06-29] MEDS ORDERED: DOCUSATE SODIUM 100 MG CAPSULE PO SCH (09:00)
[2019-06-29 09:33] LABS: Hematocrit 27.7 VOL% (42.0-52.0); Hemoglobin 9.1 GM/DL (14.0-18.0)
[2019-06-29] MEDS: POLYETHYLENE GLYCOL POWDER 17 GM PACK PO SCH ×2 (10:27→20:40)
[2019-06-29] MEDS: PROMETHAZINE 25 MG/1 ML VIAL IM PRN ×3 (10:29→23:36)
[2019-06-29] MEDS: MORPHINE 4 MG/1 ML VIAL IV PRN ×2 (16:17→23:45)
[2019-06-29] MEDS: CEFEPIME 1,000 MG in SODIUM CHLORIDE 0.9% 100 ML IV SCH (17:07)
[2019-06-29] MEDS ORDERED: SENNA 8.6 MG TABLET PO ONE (17:32)
[2019-06-29] MEDS: ACETAMINOPHEN 500 MG TABLET PO PRN (19:20)
[2019-06-29] MEDS: DOCUSATE SODIUM 100 MG CAPSULE PO SCH (20:40)
[2019-06-30 05:18] LABS: Basophils % 0.1 % (0.0-0.8); Immature Granulocytes % 2.1 %; Lymphocytes # 0.6 10*3/uL (1.4-4.0); Lymphocytes % 6.3 % (21.2-54.2); Mean Corpuscular HGB Conc 32.1 GM/DL (32-36); Mean Corpuscular Volume 92.1 FL (87-102); Mean Platelet Volume 10.4 FL (9.6-12.0); Monocytes % 29.1 % (1.7-12.7); NRBC # 0.27 10*3/uL; Neutrophils % 62.4 % (38.7-73.9); Platelet Count 71 T/CUMM (130-400); Red Blood Count 3.04 MC/CUMM (3.8-5.5); Red Cell Distribution Width 16.5 % (9.3-17.3); White Blood Count 9.6 T/CUMM (4-12)
[2019-06-30 05:39] LABS: Calcium 7.3 MG/DL (8.5-10.1)
[2019-06-30 05:43] LABS: Albumin 2.1 G/DL (3.4-5.0); Osmolality,Calculated 287.7 MOS/KG (273-304)
[2019-06-30 05:45] LABS: Band Neutrophils 1 % (0-10); Hypochromasia Slight; Lymphocytes 9 % (20-55); Metamyelocytes 2 %; Nucleated Red Blood Cells 3 (0-5); Platelet Estimate Decreased; Segmented Neutrophils 69 % (50-85); Total Cells Counted 100
[2019-06-30] MEDS: MORPHINE 4 MG/1 ML VIAL IV PRN ×2 (07:39→19:24)
[2019-06-30] MEDS: ASPIRIN EC 81 MG TABLET PO SCH (09:27)
[2019-06-30] MEDS: DOCUSATE SODIUM 100 MG CAPSULE PO SCH ×2 (09:27→20:18)
[2019-06-30] MEDS: LOSARTAN 25 MG TABLET PO SCH ×2 (09:27→20:17)
[2019-06-30] MEDS: PANTOPRAZOLE 40 MG TABLET PO SCH ×2 (09:27→20:17)
[2019-06-30] MEDS: CARVEDILOL 3.125 MG TABLET PO SCH ×2 (09:27→17:01)
[2019-06-30] MEDS: POLYETHYLENE GLYCOL POWDER 17 GM PACK PO SCH ×3 (09:28→20:17)
[2019-06-30] MEDS: FLUCONAZOLE 100 MG TABLET PO SCH (09:28)
[2019-06-30] MEDS: PROMETHAZINE 25 MG/1 ML VIAL IM PRN ×2 (09:59→19:24)
[2019-06-30] MEDS: TAMSULOSIN 0.4 MG CAPSULE PO SCH (10:08)
[2019-06-30] MEDS: CEFEPIME 1,000 MG in SODIUM CHLORIDE 0.9% 100 ML IV SCH (17:03)
[2019-06-30] MEDS: ALBUTEROL/IPRATROPIUM 3 ML NEB RESP TX SCH (19:11)
[2019-07-01] MEDS: ALBUTEROL/IPRATROPIUM 3 ML NEB RESP TX SCH ×3 (01:12→15:10)
[2019-07-01] MEDS: MORPHINE 4 MG/1 ML VIAL IV PRN (03:22)
[2019-07-01] MEDS: PROMETHAZINE 25 MG/1 ML VIAL IM PRN (03:23)
[2019-07-01 05:48] LABS: Basophils % 0.2 % (0.0-0.8); Hematocrit 27.2 VOL% (42.0-52.0); Immature Granulocytes % 1.2 %; Immature Granulocytes Absolute 0.11 #; Lymphocytes # 0.8 10*3/uL (1.4-4.0); Lymphocytes % 8.5 % (21.2-54.2); Mean Corpuscular HGB Conc 33.1 GM/DL (32-36); Mean Corpuscular Volume 92.2 FL (87-102); Mean Platelet Volume 10.8 FL (9.6-12.0); Monocytes % 22.1 % (1.7-12.7); NRBC # 0.19 10*3/uL; Platelet Count 79 T/CUMM (130-400); Red Blood Count 2.95 MC/CUMM (3.8-5.5); Red Cell Distribution Width 16.1 % (9.3-17.3); White Blood Count 9.2 T/CUMM (4-12)
[2019-07-01 06:08] LABS: Albumin 2.2 G/DL (3.4-5.0); Calcium 7.3 MG/DL (8.5-10.1); Osmolality,Calculated 290.7 MOS/KG (273-304)
[2019-07-01 09:38] LABS: Band Neutrophils 1 % (0-10); Burr Cells Few; Elliptocytes Few; Lymphocytes 5 % (20-55); Ovalocytes Few; Platelet Estimate Decreased; Polychromasia Slight; Segmented Neutrophils 73 % (50-85); Total Cells Counted 100
[2019-07-01 09:39] LABS: Microcytosis Slight
[2019-07-01] MEDS: LOSARTAN 25 MG TABLET PO SCH (11:24)
[2019-07-01] MEDS: DOCUSATE SODIUM 100 MG CAPSULE PO SCH (11:24)
[2019-07-01] MEDS: CARVEDILOL 3.125 MG TABLET PO SCH (11:24)
[2019-07-01] MEDS: FLUCONAZOLE 100 MG TABLET PO SCH (11:24)
[2019-07-01] MEDS: TAMSULOSIN 0.4 MG CAPSULE PO SCH (11:24)
[2019-07-01] MEDS: POLYETHYLENE GLYCOL POWDER 17 GM PACK PO SCH ×2 (11:24→11:25)
[2019-07-01] MEDS: ASPIRIN EC 81 MG TABLET PO SCH (11:24)
[2019-07-01] MEDS: ACETAMINOPHEN 500 MG TABLET PO PRN (11:25)
[2019-07-01] MEDS: PANTOPRAZOLE 40 MG TABLET PO SCH (11:25)
[2019-07-01 14:37] VITALS: BP 145/82
== END 2019-07-01 15:43 | disposition home or self-care (01) | DRG 391 ==
LOC: N.ED 02:07 → SUATTDRO 05:44 → N.EDINP 06:28 → N.2E 11:43
PROVIDERS: ADMIT Hospitalist; ATTEND Hospitalist

== ENCOUNTER 2019-08-12 04:57 | Inpatient (IN) ==
[2019-08-12] MEDS ORDERED: FUROSEMIDE 40 MG/4 ML VIAL IV STA (05:23)
[2019-08-12] MEDS ORDERED: hydrALAZINE 20 MG/1 ML VIAL IV STA ×2 (05:23→05:46)
[2019-08-12 05:28] LABS: Basophils # 0.1 10*3/uL (0.0-0.2); Basophils % 0.4 % (0.0-0.8); Eosinophils # 0.5 10*3/uL (0.0-0.87); Eosinophils % 3.3 % (0.00-10.9); Hematocrit 29.3 VOL% (42.0-52.0); Hemoglobin 9.3 GM/DL (14.0-18.0); Immature Granulocytes % 0.4 %; Immature Granulocytes Absolute 0.06 #; Lymphocytes # 2.9 10*3/uL (1.4-4.0); Lymphocytes % 21.6 % (21.2-54.2); Mean Corpuscular HGB Conc 31.7 GM/DL (32-36); Mean Corpuscular Volume 98.7 FL (87-102); Mean Platelet Volume 10.1 FL (9.6-12.0); Monocytes % 11.6 % (1.7-12.7); NRBC # 0.03 10*3/uL; Neutrophils % 62.7 % (38.7-73.9); Platelet Count 233 T/CUMM (130-400); Red Blood Count 2.97 MC/CUMM (3.8-5.5); Red Cell Distribution Width 18.6 % (9.3-17.3); White Blood Count 13.5 T/CUMM (4-12)
[2019-08-12] MEDS ORDERED: CEFEPIME 2,000 MG in SODIUM CHLORIDE 0.9% 100 ML IV STA ×2 (05:38→05:39)
[2019-08-12] MEDS ORDERED: VANCOMYCIN INJ 1,000 MG in SODIUM CHLORIDE 0.9% 250 ML IV STA (05:38)
[2019-08-12] MEDS ORDERED: LABETALOL 20 MG/4 ML SYRINGE IV STA (05:46)
[2019-08-12 05:57] LABS: Albumin 3.3 G/DL (3.4-5.0); Bilirubin,Total 0.8 MG/DL (0.2-1.0); Calcium 9.4 MG/DL (8.5-10.1); Osmolality,Calculated 297.8 MOS/KG (273-304); Total Protein 7.6 G/DL (6.4-8.3)
[2019-08-12] MEDS ORDERED: ACETAMINOPHEN 325 MG TABLET PO PRN (06:09)
[2019-08-12] MEDS ORDERED: ONDANSETRON 4 MG/2 ML VIAL IV PRN (06:09)
[2019-08-12] MEDS ORDERED: hydrALAZINE 20 MG/1 ML VIAL IV PRN (06:14)
[2019-08-12] MEDS ORDERED: VANCOMYCIN INJ 1,250 MG in SODIUM CHLORIDE 0.9% 250 ML IV PRN (06:26)
[2019-08-12] MEDS ORDERED: HEPARIN 5,000 UNIT/1 ML VIAL SUBCUT SCH (06:30)
[2019-08-12] MEDS ORDERED: FUROSEMIDE 40 MG/4 ML VIAL IV ONE (06:32)
[2019-08-12 06:53] LABS: Risk Ratio 3.16; Thyroid Stimulating Hormone 2.04 uIU/ml (0.358-3.74); VLDL CHOLESTEROL 27.8 MG/DL
[2019-08-12] MEDS: MORPHINE 4 MG/1 ML VIAL IV PRN ×2 (07:32→17:17)
[2019-08-12] MEDS: ALBUTEROL/IPRATROPIUM 3 ML NEB RESP TX SCH ×5 (08:00→23:44)
[2019-08-12 08:23] LABS: Troponin I 0.039 NG/ML (0.00-0.045)
[2019-08-12] MEDS ORDERED: ELVITEG COB EMTRI TENOF ALAFEN PO SCH (09:00)
[2019-08-12] MEDS ORDERED: carvediloL 3.125 MG TABLET PO SCH (09:00)
[2019-08-12] MEDS: PIPERACILLIN/TAZOBACTAM 3,375 MG in SODIUM CHLORIDE 0.9% 100 ML IV SCH ×2 (09:19→22:33)
[2019-08-12] MEDS: FLUCONAZOLE 100 MG TABLET PO SCH (09:21)
[2019-08-12] MEDS: carvediloL 12.5 MG TABLET PO SCH ×2 (09:21→22:34)
[2019-08-12] MEDS: TAMSULOSIN 0.4 MG CAPSULE PO SCH (09:21)
[2019-08-12] MEDS: DOCUSATE SODIUM 100 MG CAPSULE PO SCH ×2 (09:21→22:34)
[2019-08-12] MEDS: SULFAMETHOX/TRIMETHOPRIM 800-160 MG TABLET PO SCH (09:21)
[2019-08-12] MEDS: SEVELAMER CARBONATE 800 MG TABLET PO SCH ×4 (09:21→22:36)
[2019-08-12] MEDS: ASPIRIN EC 81 MG TABLET PO SCH (09:21)
[2019-08-12] MEDS: PANTOPRAZOLE 40 MG TABLET PO SCH (09:22)
[2019-08-12] MEDS: LOSARTAN 25 MG TABLET PO SCH ×2 (09:22→22:34)
[2019-08-12] MEDS: ACETAMINOPHEN 325 MG TABLET PO PRN ×2 (11:02→17:18)
[2019-08-12] MEDS: BENZONATATE 100 MG CAPSULE PO PRN (11:08)
[2019-08-12 14:04] LABS: Troponin I 0.079 NG/ML (0.00-0.045)
[2019-08-12 19:19] LABS: Apearance,Urine Slightly Hazy (Clear); Bacteria,Urine Occasional /HPF (Few); Bilirubin,Urine Negative (Negative); Blood, Urine Small mg/dL (Negative); Glucose,Urine (UA) 50 mg/dL (Negative); Hyaline Casts,Urine 1 /LPF (0-3); Ketones,Urine Negative (Negative); Mucus,Urine Occasional /LPF (Occasional); Nitrite,Urine Negative (Negative); Protein,Urine >=500 MG/DL; RBC,Urine 9 /HPF (0-4); Squamous Epithelial Cell,Urine Occasional /HPF (0-10); Urine Color Yellow (Yellow); Urine Specific Gravity 1.017 (1.001-1.035); Urine Urobilinogen < 2.0 EU/DL (0.2-1.0); WBC,Urine 53 /HPF (0-6)
[2019-08-12 19:41] LABS: Troponin I 0.094 NG/ML (0.00-0.045)
[2019-08-13] MEDS: ALBUTEROL/IPRATROPIUM 3 ML NEB RESP TX SCH ×6 (03:15→23:52)
[2019-08-13 04:39] LABS: Basophils % 0.4 % (0.0-0.8); Eosinophils # 0.4 10*3/uL (0.0-0.87); Eosinophils % 3.8 % (0.00-10.9); Hematocrit 25.7 VOL% (42.0-52.0); Hemoglobin 8.3 GM/DL (14.0-18.0); Immature Granulocytes % 0.3 %; Immature Granulocytes Absolute 0.03 #; Lymphocytes # 2.7 10*3/uL (1.4-4.0); Mean Corpuscular HGB Conc 32.3 GM/DL (32-36); Mean Corpuscular Volume 98.1 FL (87-102); Mean Platelet Volume 9.5 FL (9.6-12.0); Monocytes % 15.6 % (1.7-12.7); NRBC # 0.02 10*3/uL; Neutrophils % 50.9 % (38.7-73.9); Platelet Count 207 T/CUMM (130-400); Red Blood Count 2.62 MC/CUMM (3.8-5.5); Red Cell Distribution Width 18.9 % (9.3-17.3); White Blood Count 9.4 T/CUMM (4-12)
[2019-08-13 05:03] LABS: Calcium 8.5 MG/DL (8.5-10.1); Osmolality,Calculated 283.5 MOS/KG (273-304)
[2019-08-13 05:07] LABS: Hypochromasia 1+; Microcytosis Slight; Platelet Estimate Adequate
[2019-08-13] MEDS: FLUCONAZOLE 100 MG TABLET PO SCH (09:04)
[2019-08-13] MEDS: PANTOPRAZOLE 40 MG TABLET PO SCH (09:04)
[2019-08-13] MEDS: carvediloL 25 MG TABLET PO SCH ×2 (09:04→21:14)
[2019-08-13] MEDS: LOSARTAN 50 MG TABLET PO SCH ×2 (09:05→21:14)
[2019-08-13] MEDS: ASPIRIN EC 81 MG TABLET PO SCH (09:05)
[2019-08-13] MEDS: DOCUSATE SODIUM 100 MG CAPSULE PO SCH ×2 (09:05→21:14)
[2019-08-13] MEDS: SEVELAMER CARBONATE 800 MG TABLET PO SCH ×3 (09:05→21:15)
[2019-08-13] MEDS: TAMSULOSIN 0.4 MG CAPSULE PO SCH (09:05)
[2019-08-13] MEDS: PIPERACILLIN/TAZOBACTAM 3,375 MG in SODIUM CHLORIDE 0.9% 100 ML IV SCH ×2 (09:07→21:15)
[2019-08-13] MEDS: ACETAMINOPHEN 325 MG TABLET PO PRN ×2 (11:01→19:40)
[2019-08-13] MEDS: MORPHINE 4 MG/1 ML VIAL IV PRN (17:11)
[2019-08-13] MEDS: BENZONATATE 100 MG CAPSULE PO PRN (18:49)
[2019-08-13] MEDS: ZOLPIDEM 5 MG TABLET PO SCH (21:14)
[2019-08-13] MEDS ORDERED: hydrALAZINE 20 MG/1 ML VIAL IV PRN (23:37)
[2019-08-14] MEDS: MORPHINE 4 MG/1 ML VIAL IV PRN ×5 (00:03→23:08)
[2019-08-14] MEDS: ALBUTEROL/IPRATROPIUM 3 ML NEB RESP TX SCH ×6 (04:05→20:09)
[2019-08-14] MEDS: ACETAMINOPHEN 325 MG TABLET PO PRN ×2 (06:23→21:18)
[2019-08-14] MEDS ORDERED: amLODIPine 5 MG TABLET PO SCH (09:00)
[2019-08-14] MEDS: SULFAMETHOX/TRIMETHOPRIM 800-160 MG TABLET PO SCH (09:51)
[2019-08-14] MEDS: FLUCONAZOLE 100 MG TABLET PO SCH (09:51)
[2019-08-14] MEDS: ASPIRIN EC 81 MG TABLET PO SCH (09:51)
[2019-08-14] MEDS: TAMSULOSIN 0.4 MG CAPSULE PO SCH (09:52)
[2019-08-14] MEDS: SACUBITRIL/VALSARTAN 49-51 MG TABLET PO SCH ×2 (09:52→20:50)
[2019-08-14] MEDS: carvediloL 25 MG TABLET PO SCH ×2 (09:52→20:50)
[2019-08-14] MEDS: SEVELAMER CARBONATE 800 MG TABLET PO SCH ×3 (09:52→20:49)
[2019-08-14] MEDS: DOCUSATE SODIUM 100 MG CAPSULE PO SCH ×2 (09:53→20:51)
[2019-08-14] MEDS: PANTOPRAZOLE 40 MG TABLET PO SCH (09:53)
[2019-08-14] MEDS ORDERED: VANCOMYCIN INJ 1,250 MG in SODIUM CHLORIDE 0.9% 250 ML IV ONE (13:00)
[2019-08-14] MEDS: PIPERACILLIN/TAZOBACTAM 3,375 MG in SODIUM CHLORIDE 0.9% 100 ML IV SCH ×2 (16:28→21:00)
[2019-08-14] MEDS: methylPREDNISolone SOD SUC 40 MG/1 ML VIAL IV SCH ×2 (16:28→17:20)
[2019-08-14] MEDS: FUROSEMIDE 40 MG/4 ML VIAL IV SCH (16:29)
[2019-08-14] MEDS: ZOLPIDEM 5 MG TABLET PO SCH (20:50)
[2019-08-15] MEDS: ALBUTEROL/IPRATROPIUM 3 ML NEB RESP TX SCH ×7 (00:20→23:13)
[2019-08-15] MEDS: methylPREDNISolone SOD SUC 40 MG/1 ML VIAL IV SCH ×3 (01:07→20:54)
[2019-08-15 04:09] LABS: Basophils % 0.2 % (0.0-0.8); Hematocrit 28.7 VOL% (42.0-52.0); Hemoglobin 9.3 GM/DL (14.0-18.0); Immature Granulocytes % 0.6 %; Immature Granulocytes Absolute 0.03 #; Lymphocytes % 19.9 % (21.2-54.2); Mean Corpuscular HGB Conc 32.4 GM/DL (32-36); Mean Platelet Volume 9.7 FL (9.6-12.0); Monocytes % 3.3 % (1.7-12.7); NRBC # 0.02 10*3/uL; Platelet Count 243 T/CUMM (130-400); Red Blood Count 2.99 MC/CUMM (3.8-5.5); Red Cell Distribution Width 18.5 % (9.3-17.3); White Blood Count 5.2 T/CUMM (4-12)
[2019-08-15 04:36] LABS: Calcium 9.4 MG/DL (8.5-10.1); Osmolality,Calculated 279.1 MOS/KG (273-304)
[2019-08-15] MEDS: ASPIRIN EC 81 MG TABLET PO SCH (08:47)
[2019-08-15] MEDS: DOCUSATE SODIUM 100 MG CAPSULE PO SCH ×2 (08:48→20:54)
[2019-08-15] MEDS: PANTOPRAZOLE 40 MG TABLET PO SCH (08:48)
[2019-08-15] MEDS: FLUCONAZOLE 100 MG TABLET PO SCH (08:48)
[2019-08-15] MEDS: amLODIPine 10 MG TABLET PO SCH (08:48)
[2019-08-15] MEDS: TAMSULOSIN 0.4 MG CAPSULE PO SCH (08:48)
[2019-08-15] MEDS: carvediloL 25 MG TABLET PO SCH ×2 (08:48→20:53)
[2019-08-15] MEDS: SEVELAMER CARBONATE 800 MG TABLET PO SCH ×3 (08:48→17:24)
[2019-08-15] MEDS: PIPERACILLIN/TAZOBACTAM 3,375 MG in SODIUM CHLORIDE 0.9% 100 ML IV SCH ×2 (08:56→20:49)
[2019-08-15] MEDS: FUROSEMIDE 40 MG/4 ML VIAL IV SCH (08:56)
[2019-08-15] MEDS: SACUBITRIL/VALSARTAN 49-51 MG TABLET PO SCH ×2 (10:11→20:53)
[2019-08-15] MEDS: hydrALAZINE 25 MG TABLET PO SCH ×3 (10:11→20:53)
[2019-08-15] MEDS ORDERED: SACUBITRIL/VALSARTAN 49-51 MG TABLET PO ONE (10:30)
[2019-08-15] MEDS: MORPHINE 4 MG/1 ML VIAL IV PRN ×2 (13:21→22:31)
[2019-08-15] MEDS: ZOLPIDEM 5 MG TABLET PO SCH (20:53)
[2019-08-16] MEDS: ALBUTEROL/IPRATROPIUM 3 ML NEB RESP TX SCH ×3 (02:52→11:40)
[2019-08-16 05:44] LABS: Basophils % 0.1 % (0.0-0.8); Hematocrit 25.5 VOL% (42.0-52.0); Hemoglobin 8.1 GM/DL (14.0-18.0); Immature Granulocytes % 1.2 %; Immature Granulocytes Absolute 0.17 #; Lymphocytes # 1.2 10*3/uL (1.4-4.0); Lymphocytes % 8.2 % (21.2-54.2); Mean Corpuscular HGB Conc 31.8 GM/DL (32-36); Mean Corpuscular Volume 98.5 FL (87-102); Mean Platelet Volume 9.7 FL (9.6-12.0); Monocytes % 6.5 % (1.7-12.7); NRBC # 0.04 10*3/uL; Platelet Count 243 T/CUMM (130-400); Red Blood Count 2.59 MC/CUMM (3.8-5.5); Red Cell Distribution Width 18.7 % (9.3-17.3); White Blood Count 14.7 T/CUMM (4-12)
[2019-08-16 05:59] LABS: Calcium 8.8 MG/DL (8.5-10.1); Osmolality,Calculated 288.2 MOS/KG (273-304)
[2019-08-16] MEDS: FLUCONAZOLE 100 MG TABLET PO SCH (08:24)
[2019-08-16] MEDS: SEVELAMER CARBONATE 800 MG TABLET PO SCH ×2 (08:24→13:17)
[2019-08-16] MEDS: ASPIRIN EC 81 MG TABLET PO SCH (08:24)
[2019-08-16] MEDS: SULFAMETHOX/TRIMETHOPRIM 800-160 MG TABLET PO SCH (08:25)
[2019-08-16] MEDS: hydrALAZINE 25 MG TABLET PO SCH (08:25)
[2019-08-16] MEDS: amLODIPine 10 MG TABLET PO SCH (08:25)
[2019-08-16] MEDS: TAMSULOSIN 0.4 MG CAPSULE PO SCH (08:25)
[2019-08-16] MEDS: PANTOPRAZOLE 40 MG TABLET PO SCH (08:25)
[2019-08-16] MEDS: carvediloL 25 MG TABLET PO SCH (08:25)
[2019-08-16] MEDS: BENZONATATE 100 MG CAPSULE PO PRN (08:25)
[2019-08-16] MEDS: DOCUSATE SODIUM 100 MG CAPSULE PO SCH (08:25)
[2019-08-16] MEDS: SACUBITRIL/VALSARTAN 49-51 MG TABLET PO SCH (08:25)
[2019-08-16] MEDS: methylPREDNISolone SOD SUC 40 MG/1 ML VIAL IV SCH (09:27)
[2019-08-16] MEDS: PIPERACILLIN/TAZOBACTAM 3,375 MG in SODIUM CHLORIDE 0.9% 100 ML IV SCH (09:27)
[2019-08-16] MEDS: FUROSEMIDE 40 MG/4 ML VIAL IV SCH (09:27)
[2019-08-16 13:06] VITALS: BP 123/68
== END 2019-08-16 14:47 | disposition home or self-care (01) | DRG 291 ==
LOC: N.EDINP 04:57 → N.ED 04:57 → N.TELEN 06:57
PROVIDERS: ADMIT Internal Medicine; ATTEND Internal Medicine

== ENCOUNTER 2019-09-30 00:23 | Inpatient (IN) ==
[2019-09-30] MEDS ORDERED: NITROGLYCERIN 2% OINT 1 INCH/GM PACK TOP STA (00:46)
[2019-09-30] MEDS ORDERED: hydrALAZINE 20 MG/1 ML VIAL IV STA (00:59)
[2019-09-30 01:28] LABS: Basophils # 0.1 10*3/uL (0.0-0.2); Basophils % 0.4 % (0.0-0.8); Eosinophils # 0.1 10*3/uL (0.0-0.87); Hematocrit 39.5 VOL% (42.0-52.0); Hemoglobin 13.2 GM/DL (14.0-18.0); Immature Granulocytes % 0.4 %; Immature Granulocytes Absolute 0.04 #; Lymphocytes # 1.9 10*3/uL (1.4-4.0); Lymphocytes % 16.3 % (21.2-54.2); Mean Corpuscular HGB Conc 33.4 GM/DL (32-36); Mean Corpuscular Volume 97.1 FL (87-102); Mean Platelet Volume 10.5 FL (9.6-12.0); Monocytes % 11.1 % (1.7-12.7); Neutrophils % 70.8 % (38.7-73.9); Platelet Count 156 T/CUMM (130-400); Red Blood Count 4.07 MC/CUMM (3.8-5.5); Red Cell Distribution Width 14.3 % (9.3-17.3); White Blood Count 11.4 T/CUMM (4-12)
[2019-09-30 01:48] LABS: Albumin 3.7 G/DL (3.4-5.0); Bilirubin,Total 0.5 MG/DL (0.2-1.0); Calcium 7.8 MG/DL (8.5-10.1); Osmolality,Calculated 294.7 MOS/KG (273-304); Total Protein 8.8 G/DL (6.4-8.3)
[2019-09-30] MEDS ORDERED: ONDANSETRON 4 MG/2 ML VIAL IV STA (02:18)
[2019-09-30] MEDS ORDERED: ONDANSETRON 4 MG/2 ML VIAL IV ONE (02:45)
[2019-09-30] MEDS ORDERED: MORPHINE 4 MG/1 ML VIAL IV STA (02:45)
[2019-09-30] MEDS ORDERED: SUMAtriptan 6 MG/0.5 ML VIAL SUBCUT STA (04:55)
[2019-09-30] MEDS ORDERED: INFLUENZA VIRUS VACCINE 0.5 ML SYRINGE IM ONE (06:20)
[2019-09-30] MEDS: ACETAMINOPHEN 325 MG TABLET PO PRN ×2 (06:26→17:10)
[2019-09-30] MEDS: HEPARIN 5,000 UNIT/1 ML VIAL SUBCUT SCH ×3 (06:27→22:04)
[2019-09-30] MEDS: PANTOPRAZOLE 40 MG TABLET PO SCH (09:10)
[2019-09-30] MEDS: PIPERACILLIN/TAZOBACTAM 3,375 MG in SODIUM CHLORIDE 0.9% 100 ML IV SCH (12:06)
[2019-09-30] MEDS: hydrALAZINE 20 MG/1 ML VIAL IV PRN (14:09)
[2019-09-30] MEDS ORDERED: VANCOMYCIN INJ 1,500 MG in SODIUM CHLORIDE 0.9% 500 ML IV ONE (17:00)
[2019-10-01] MEDS: PIPERACILLIN/TAZOBACTAM 3,375 MG in SODIUM CHLORIDE 0.9% 100 ML IV SCH ×3 (00:09→23:52)
[2019-10-01 05:28] LABS: Basophils % 0.4 % (0.0-0.8); Eosinophils % 0.1 % (0.00-10.9); Hematocrit 33.2 VOL% (42.0-52.0); Hemoglobin 10.9 GM/DL (14.0-18.0); Immature Granulocytes % 0.6 %; Immature Granulocytes Absolute 0.05 #; Lymphocytes # 2.3 10*3/uL (1.4-4.0); Lymphocytes % 27.2 % (21.2-54.2); Mean Corpuscular HGB Conc 32.8 GM/DL (32-36); Mean Corpuscular Volume 96.8 FL (87-102); Mean Platelet Volume 11.2 FL (9.6-12.0); Monocytes % 15.6 % (1.7-12.7); Neutrophils % 56.1 % (38.7-73.9); Platelet Count 116 T/CUMM (130-400); Red Blood Count 3.43 MC/CUMM (3.8-5.5); Red Cell Distribution Width 14.5 % (9.3-17.3); White Blood Count 8.3 T/CUMM (4-12)
[2019-10-01 05:33] LABS: Bilirubin,Total 1.1 MG/DL (0.2-1.0); Calcium 8.1 MG/DL (8.5-10.1); Osmolality,Calculated 281.1 MOS/KG (273-304); Total Protein 7.6 G/DL (6.4-8.3)
[2019-10-01] MEDS: HEPARIN 5,000 UNIT/1 ML VIAL SUBCUT SCH ×3 (05:48→21:57)
[2019-10-01 05:54] LABS: Band Neutrophils 1 % (0-10); Hypochromasia Slight; Lymphocytes 24 % (20-55); Segmented Neutrophils 65 % (50-85); Target Cells Slight; Total Cells Counted 100
[2019-10-01 05:55] LABS: Macrocytosis Slight; Ovalocytes Slight; Platelet Estimate Adequate
[2019-10-01] MEDS ORDERED: VANCOMYCIN INJ 500 MG in SODIUM CHLORIDE 0.9% 100 ML IV PRN (07:44)
[2019-10-01] MEDS: hydrALAZINE 20 MG/1 ML VIAL IV PRN (07:55)
[2019-10-01] MEDS: PANTOPRAZOLE 40 MG TABLET PO SCH ×2 (09:59→20:01)
[2019-10-01] MEDS: ONDANSETRON 4 MG/2 ML VIAL IV PRN ×2 (11:55→18:00)
[2019-10-01] MEDS ORDERED: POLYETHYLENE GLYCOL POWDER 17 GM PACK PO PRN (12:02)
[2019-10-01] MEDS ORDERED: BENZONATATE 100 MG CAPSULE PO PRN (12:02)
[2019-10-01] MEDS: carvediloL 25 MG TABLET PO SCH ×2 (13:38→20:01)
[2019-10-01] MEDS: amLODIPine 10 MG TABLET PO SCH (13:38)
[2019-10-01] MEDS: SACUBITRIL/VALSARTAN 49-51 MG TABLET PO SCH ×2 (13:38→20:01)
[2019-10-01] MEDS: MORPHINE 4 MG/1 ML VIAL IV PRN ×2 (14:37→19:50)
[2019-10-01] MEDS: hydrALAZINE 25 MG TABLET PO SCH ×2 (14:37→20:01)
[2019-10-01] MEDS: ACETAMINOPHEN 325 MG TABLET PO PRN (16:24)
[2019-10-01] MEDS: DOCUSATE SODIUM 100 MG CAPSULE PO SCH (20:01)
[2019-10-02] MEDS: ACETAMINOPHEN 325 MG TABLET PO PRN ×3 (03:48→21:05)
[2019-10-02] MEDS: MORPHINE 4 MG/1 ML VIAL IV PRN ×2 (03:48→21:15)
[2019-10-02 05:28] LABS: Basophils % 0.3 % (0.0-0.8); Eosinophils % 0.2 % (0.00-10.9); Hematocrit 32.5 VOL% (42.0-52.0); Hemoglobin 10.7 GM/DL (14.0-18.0); Immature Granulocytes % 0.7 %; Immature Granulocytes Absolute 0.07 #; Mean Corpuscular HGB Conc 32.9 GM/DL (32-36); Mean Platelet Volume 10.3 FL (9.6-12.0); Neutrophils % 65.8 % (38.7-73.9); Platelet Count 110 T/CUMM (130-400); Red Blood Count 3.35 MC/CUMM (3.8-5.5); Red Cell Distribution Width 14.3 % (9.3-17.3)
[2019-10-02] MEDS: HEPARIN 5,000 UNIT/1 ML VIAL SUBCUT SCH ×3 (05:34→21:06)
[2019-10-02 05:54] LABS: Osmolality,Calculated 281.7 MOS/KG (273-304)
[2019-10-02] MEDS: PANTOPRAZOLE 40 MG TABLET PO SCH ×2 (08:10→21:16)
[2019-10-02] MEDS: hydrALAZINE 25 MG TABLET PO SCH ×3 (08:10→21:05)
[2019-10-02] MEDS: carvediloL 25 MG TABLET PO SCH ×2 (08:11→21:05)
[2019-10-02] MEDS: DOCUSATE SODIUM 100 MG CAPSULE PO SCH ×2 (08:11→21:05)
[2019-10-02] MEDS: ASPIRIN EC 81 MG TABLET PO SCH (08:11)
[2019-10-02] MEDS: SACUBITRIL/VALSARTAN 49-51 MG TABLET PO SCH ×2 (08:11→21:04)
[2019-10-02] MEDS: amLODIPine 10 MG TABLET PO SCH (08:11)
[2019-10-02] MEDS ORDERED: ELVITEG COB EMTRI TENOF ALAFEN PO SCH (09:00)
[2019-10-02] MEDS: PIPERACILLIN/TAZOBACTAM 3,375 MG in SODIUM CHLORIDE 0.9% 100 ML IV SCH ×2 (12:37→23:34)
[2019-10-02] MEDS: AZITHROMYCIN INJ 500 MG in SODIUM CHLORIDE 0.9% 250 ML IV SCH (15:30)
[2019-10-02] MEDS ORDERED: PROMETHAZINE INJ 12.5 MG in SODIUM CHLORIDE 0.9% 50 ML IV PRN (15:39)
[2019-10-03] MEDS: HEPARIN 5,000 UNIT/1 ML VIAL SUBCUT SCH ×3 (05:33→21:29)
[2019-10-03 05:42] LABS: Basophils % 0.4 % (0.0-0.8); Eosinophils # 0.1 10*3/uL (0.0-0.87); Eosinophils % 1.2 % (0.00-10.9); Hematocrit 35.8 VOL% (42.0-52.0); Hemoglobin 11.7 GM/DL (14.0-18.0); Immature Granulocytes % 0.6 %; Immature Granulocytes Absolute 0.04 #; Lymphocytes % 29.4 % (21.2-54.2); Mean Corpuscular HGB Conc 32.7 GM/DL (32-36); Mean Corpuscular Volume 97.3 FL (87-102); Mean Platelet Volume 10.6 FL (9.6-12.0); Monocytes % 15.5 % (1.7-12.7); Neutrophils % 52.9 % (38.7-73.9); Platelet Count 135 T/CUMM (130-400); Red Blood Count 3.68 MC/CUMM (3.8-5.5); Red Cell Distribution Width 14.1 % (9.3-17.3); White Blood Count 6.8 T/CUMM (4-12)
[2019-10-03 06:10] LABS: Calcium 7.8 MG/DL (8.5-10.1); Osmolality,Calculated 277.1 MOS/KG (273-304)
[2019-10-03] MEDS: DOCUSATE SODIUM 100 MG CAPSULE PO SCH ×2 (08:53→21:28)
[2019-10-03] MEDS: amLODIPine 10 MG TABLET PO SCH (08:53)
[2019-10-03] MEDS: carvediloL 25 MG TABLET PO SCH ×2 (08:53→21:29)
[2019-10-03] MEDS: SACUBITRIL/VALSARTAN 49-51 MG TABLET PO SCH ×2 (08:53→21:28)
[2019-10-03] MEDS: ASPIRIN EC 81 MG TABLET PO SCH (08:53)
[2019-10-03] MEDS: PANTOPRAZOLE 40 MG TABLET PO SCH ×2 (08:53→21:28)
[2019-10-03] MEDS: hydrALAZINE 25 MG TABLET PO SCH ×3 (08:53→21:28)
[2019-10-03] MEDS: PIPERACILLIN/TAZOBACTAM 3,375 MG in SODIUM CHLORIDE 0.9% 100 ML IV SCH (11:55)
[2019-10-03] MEDS: AZITHROMYCIN INJ 500 MG in SODIUM CHLORIDE 0.9% 250 ML IV SCH (16:10)
[2019-10-03] MEDS: ONDANSETRON 4 MG/2 ML VIAL IV PRN (21:59)
[2019-10-04] MEDS: PIPERACILLIN/TAZOBACTAM 3,375 MG in SODIUM CHLORIDE 0.9% 100 ML IV SCH ×2 (00:39→14:24)
[2019-10-04 05:47] LABS: Calcium 7.7 MG/DL (8.5-10.1); Osmolality,Calculated 279.2 MOS/KG (273-304)
[2019-10-04] MEDS: HEPARIN 5,000 UNIT/1 ML VIAL SUBCUT SCH ×3 (05:58→21:38)
[2019-10-04] MEDS: carvediloL 25 MG TABLET PO SCH ×2 (08:07→21:39)
[2019-10-04] MEDS: ASPIRIN EC 81 MG TABLET PO SCH (08:07)
[2019-10-04] MEDS: hydrALAZINE 25 MG TABLET PO SCH ×3 (08:07→21:39)
[2019-10-04] MEDS: amLODIPine 10 MG TABLET PO SCH (08:07)
[2019-10-04] MEDS: SACUBITRIL/VALSARTAN 49-51 MG TABLET PO SCH ×2 (08:07→21:39)
[2019-10-04] MEDS: DOCUSATE SODIUM 100 MG CAPSULE PO SCH ×2 (08:08→21:39)
[2019-10-04] MEDS: PANTOPRAZOLE 40 MG TABLET PO SCH ×2 (08:08→21:39)
[2019-10-04] MEDS: AZITHROMYCIN INJ 500 MG in SODIUM CHLORIDE 0.9% 250 ML IV SCH (16:20)
[2019-10-04] MEDS ORDERED: VANCOMYCIN INJ 500 MG in SODIUM CHLORIDE 0.9% 100 ML IV ONE (17:00)
[2019-10-05] MEDS: PIPERACILLIN/TAZOBACTAM 3,375 MG in SODIUM CHLORIDE 0.9% 100 ML IV SCH ×2 (00:35→11:42)
[2019-10-05] MEDS: HEPARIN 5,000 UNIT/1 ML VIAL SUBCUT SCH ×3 (05:42→21:17)
[2019-10-05] MEDS: PANTOPRAZOLE 40 MG TABLET PO SCH ×2 (08:55→21:08)
[2019-10-05] MEDS: hydrALAZINE 25 MG TABLET PO SCH ×3 (08:55→21:08)
[2019-10-05] MEDS: carvediloL 25 MG TABLET PO SCH ×2 (08:56→21:08)
[2019-10-05] MEDS: DOCUSATE SODIUM 100 MG CAPSULE PO SCH ×2 (08:56→21:08)
[2019-10-05] MEDS: ASPIRIN EC 81 MG TABLET PO SCH (08:56)
[2019-10-05] MEDS: SACUBITRIL/VALSARTAN 49-51 MG TABLET PO SCH ×2 (08:56→21:08)
[2019-10-05] MEDS: amLODIPine 10 MG TABLET PO SCH (08:56)
[2019-10-05] MEDS: MORPHINE 4 MG/1 ML VIAL IV PRN (10:14)
[2019-10-05] MEDS: AZITHROMYCIN INJ 500 MG in SODIUM CHLORIDE 0.9% 250 ML IV SCH (15:36)
[2019-10-05] MEDS: ONDANSETRON 4 MG/2 ML VIAL IV PRN (15:36)
[2019-10-05] MEDS ORDERED: LEVOFLOXACIN 250 MG TABLET PO SCH (17:00)
[2019-10-05 18:18] LABS: Troponin I 0.019 NG/ML (0.00-0.045)
[2019-10-06 00:20] LABS: Troponin I 0.021 NG/ML (0.00-0.045)
[2019-10-06] MEDS: HEPARIN 5,000 UNIT/1 ML VIAL SUBCUT SCH ×2 (05:22→14:49)
[2019-10-06 05:31] LABS: Troponin I 0.031 NG/ML (0.00-0.045)
[2019-10-06] MEDS: SACUBITRIL/VALSARTAN 49-51 MG TABLET PO SCH (09:18)
[2019-10-06] MEDS: PANTOPRAZOLE 40 MG TABLET PO SCH (09:18)
[2019-10-06] MEDS: ASPIRIN EC 81 MG TABLET PO SCH (09:18)
[2019-10-06] MEDS: carvediloL 25 MG TABLET PO SCH (09:18)
[2019-10-06] MEDS: amLODIPine 10 MG TABLET PO SCH (09:18)
[2019-10-06] MEDS: hydrALAZINE 25 MG TABLET PO SCH ×2 (09:18→14:49)
[2019-10-06] MEDS: DOCUSATE SODIUM 100 MG CAPSULE PO SCH (09:19)
[2019-10-06] MEDS: MORPHINE 4 MG/1 ML VIAL IV PRN (09:27)
[2019-10-06] MEDS ORDERED: HYDROCORTISONE 2.5% RECTAL CREAM 30 GM TUBE TOP PRN (09:38)
[2019-10-06] MEDS ORDERED: HYDROCORTISONE 25 MG SUPP RECTAL ONE (13:00)
[2019-10-06 16:30] VITALS: BP 119/68
[2019-10-07 09:02] LABS: % CD4 (T Cells) 13 % (32-64); % CD8 (T Cells) 54 % (15-40); 4/8 Ratio 0.3 (>=0.9)
[2019-10-15 12:03] LABS: HIV-1 Genotypic PR-RT Drug Res INTERP; Tipranavir + Ritonavir SUSC
== END 2019-10-06 18:44 | disposition home or self-care (01) | DRG 640 ==
LOC: N.ED 00:23 → N.EDINP 00:23 → N.5E 05:39 → SUATTDRO 13:10
PROVIDERS: ADMIT Internal Medicine Nephrology; ATTEND Internal Medicine

== ENCOUNTER 2020-09-19 08:53 | Inpatient (IN) ==
[2020-09-19 10:29] LABS: Basophils % 0.2 % (0.0-0.8); Eosinophils # 0.2 10*3/uL (0.0-0.87); Eosinophils % 1.5 % (0.00-10.9); Immature Granulocytes % 0.5 %; Immature Granulocytes Absolute 0.07 #; Lymphocytes # 2.2 10*3/uL (1.4-4.0); Lymphocytes % 16.4 % (21.2-54.2); Mean Corpuscular HGB Conc 33.1 GM/DL (32-36); Mean Corpuscular Volume 94.7 FL (87-102); Mean Platelet Volume 9.4 FL (9.6-12.0); Monocytes % 17.1 % (1.7-12.7); Neutrophils % 64.3 % (38.7-73.9); Platelet Count 245 T/CUMM (130-400); Red Blood Count 1.69 MC/CUMM (3.8-5.5); Red Cell Distribution Width 15.2 % (9.3-17.3); White Blood Count 13.6 T/CUMM (4-12)
[2020-09-19 10:39] LABS: Hemoglobin 5.3 GM/DL (14.0-18.0)
[2020-09-19 10:56] LABS: Albumin 3.5 G/DL (3.4-5.0); Bilirubin,Total 0.7 MG/DL (0.2-1.0); Calcium 9.6 MG/DL (8.5-10.1); Osmolality,Calculated 271.5 MOS/KG (273-304); Total Protein 9.1 G/DL (6.4-8.3)
[2020-09-19 11:08] LABS: Anisocytosis 2+; Eosinophils 3 % (0-10); Hypochromasia 1+; Lymphocytes 19 % (20-55); Macrocytosis 1+; Platelet Estimate Normal; Segmented Neutrophils 65 % (50-85); Total Cells Counted 100
[2020-09-19] MEDS ORDERED: ACETAMINOPHEN 325 MG TABLET PO PRN (11:57)
[2020-09-19] MEDS ORDERED: SODIUM CHLORIDE 0.9% 1,000 ML IV PRN (12:07)
[2020-09-19] MEDS ORDERED: ALBUTEROL 2.5 MG/3 ML NEB RESP TX PRN (12:09)
[2020-09-19] MEDS ORDERED: POLYETHYLENE GLYCOL POWDER 17 GM PACK PO PRN (12:10)
[2020-09-19] MEDS ORDERED: PROMETHAZINE 25 MG TABLET PO PRN (12:10)
[2020-09-19 12:22] LABS: INR 1.1; PT Patient Result 11.5 SECS (9.8-11.9); Partial Thromboplastin Time 37.5 SECS (23.9-33.8)
[2020-09-19] MEDS: metroNIDAZOLE INJ 500 MG in PREMIX 1 EACH IV SCH ×2 (12:57→20:24)
[2020-09-19] MEDS: cefTRIAXone 2,000 MG in SYRINGE 1 EACH IV SCH (13:21)
[2020-09-19] MEDS: MORPHINE 4 MG/1 ML VIAL IV PRN ×2 (14:48→21:36)
[2020-09-19] MEDS ORDERED: hydrALAZINE 25 MG TABLET PO SCH (15:00)
[2020-09-19 16:19] LABS: Hepatitis B Core IgM Quant 0.07 Index; Hepatitis B Surface Ag Quant < 0.10 Index; Hepatitis B Surface Ag Result Negative (Negative); Hepatitis C Virus Ab Quant 0.04 Index; Hepatitis C Virus Ab Result Negative (Negative)
[2020-09-19] MEDS: carvediloL 25 MG TABLET PO SCH (17:00)
[2020-09-19 18:20] LABS: Hematocrit 20.9 VOL% (42.0-52.0)
[2020-09-19 18:23] LABS: Hemoglobin 7.1 GM/DL (14.0-18.0)
[2020-09-19 20:06] LABS: Hematocrit 21.6 VOL% (42.0-52.0); Hemoglobin 7.2 GM/DL (14.0-18.0)
[2020-09-19] MEDS: ONDANSETRON 4 MG/2 ML VIAL IV PRN (20:29)
[2020-09-20] MEDS: ONDANSETRON 4 MG/2 ML VIAL IV PRN ×2 (01:39→16:32)
[2020-09-20] MEDS: MORPHINE 4 MG/1 ML VIAL IV PRN (01:39)
[2020-09-20] MEDS: metroNIDAZOLE INJ 500 MG in PREMIX 1 EACH IV SCH ×3 (04:15→20:31)
[2020-09-20 06:06] LABS: Basophils % 0.4 % (0.0-0.8); Eosinophils # 0.6 10*3/uL (0.0-0.87); Eosinophils % 5.1 % (0.00-10.9); Hematocrit 26.2 VOL% (42.0-52.0); Immature Granulocytes % 0.4 %; Immature Granulocytes Absolute 0.04 #; Lymphocytes # 1.7 10*3/uL (1.4-4.0); Lymphocytes % 15.2 % (21.2-54.2); Mean Corpuscular HGB Conc 34.4 GM/DL (32-36); Mean Corpuscular Volume 87.6 FL (87-102); Mean Platelet Volume 9.2 FL (9.6-12.0); Monocytes % 18.4 % (1.7-12.7); Neutrophils % 60.5 % (38.7-73.9); Platelet Count 227 T/CUMM (130-400); Red Blood Count 2.99 MC/CUMM (3.8-5.5); Red Cell Distribution Width 15.9 % (9.3-17.3); White Blood Count 10.9 T/CUMM (4-12)
[2020-09-20 06:23] LABS: Bilirubin,Total 1.2 MG/DL (0.2-1.0); Calcium 9.1 MG/DL (8.5-10.1); Osmolality,Calculated 269.4 MOS/KG (273-304); Total Protein 8.3 G/DL (6.4-8.3)
[2020-09-20 06:45] LABS: Anisocytosis 2+; Band Neutrophils 2 % (0-10); Eosinophils 7 % (0-10); Hypochromasia 1+; Lymphocytes 15 % (20-55); Macrocytosis Slight; Nucleated Red Blood Cells 1 (0-5); Platelet Estimate Normal; Segmented Neutrophils 59 % (50-85); Total Cells Counted 100
[2020-09-20] MEDS: carvediloL 25 MG TABLET PO SCH ×2 (07:36→16:54)
[2020-09-20] MEDS: PANTOPRAZOLE 40 MG TABLET PO SCH (08:33)
[2020-09-20] MEDS: amLODIPine 10 MG TABLET PO SCH (08:34)
[2020-09-20] MEDS: ELVITEG COB EMTRI TENOF ALAFEN PO SCH (08:35)
[2020-09-20] MEDS: POLYETHYLENE GLYCOL POWDER 17 GM PACK PO SCH ×2 (09:49→20:31)
[2020-09-20] MEDS: cefTRIAXone 2,000 MG in SYRINGE 1 EACH IV SCH (11:54)
[2020-09-20 12:01] LABS: Bilirubin,Urine Negative (Negative); Blood, Urine Negative (Negative); Glucose,Urine (UA) 50 mg/dL (Negative); Hyaline Casts,Urine 1 /LPF (0-3); Ketones,Urine Negative (Negative); Nitrite,Urine Negative (Negative); Protein,Urine 100 MG/DL; RBC,Urine 2 /HPF (0-4); Urine Appearance CLEAR (Clear); Urine Color Yellow (Yellow); Urine Specific Gravity 1.008 (1.001-1.035); Urine Urobilinogen < 2.0 EU/DL (0.2-1.0); WBC,Urine 1 /HPF (0-6)
[2020-09-20 12:08] LABS: Barbiturates Screen,Urine Negative (Negative); Benzodiazepines Screen,Urine Negative (Negative); Cannabinoid Screen,Urine Negative (Negative); Opiate Screen,Urine Positive (Negative); Phencyclidine Screen,Urine Negative (Negative)
[2020-09-20 12:38] LABS: Hematocrit 28.1 VOL% (42.0-52.0); Hemoglobin 9.6 GM/DL (14.0-18.0)
[2020-09-20 18:56] LABS: Hematocrit 29.7 VOL% (42.0-52.0); Hemoglobin 10.3 GM/DL (14.0-18.0)
[2020-09-21 01:29] LABS: Hemoglobin 9.2 GM/DL (14.0-18.0)
[2020-09-21] MEDS: MORPHINE 4 MG/1 ML VIAL IV PRN ×2 (04:26→20:44)
[2020-09-21] MEDS: metroNIDAZOLE INJ 500 MG in PREMIX 1 EACH IV SCH ×3 (05:39→20:48)
[2020-09-21 06:07] LABS: Hematocrit 27.3 VOL% (42.0-52.0); Hemoglobin 9.3 GM/DL (14.0-18.0)
[2020-09-21 06:07] LABS: Basophils % 0.3 % (0.0-0.8); Eosinophils # 0.5 10*3/uL (0.0-0.87); Eosinophils % 5.5 % (0.00-10.9); Hematocrit 27.6 VOL% (42.0-52.0); Hemoglobin 9.4 GM/DL (14.0-18.0); Immature Granulocytes % 0.3 %; Immature Granulocytes Absolute 0.03 #; Lymphocytes # 1.8 10*3/uL (1.4-4.0); Lymphocytes % 18.9 % (21.2-54.2); Mean Corpuscular HGB Conc 34.1 GM/DL (32-36); Mean Corpuscular Volume 88.2 FL (87-102); Mean Platelet Volume 9.5 FL (9.6-12.0); Monocytes % 20.1 % (1.7-12.7); Neutrophils % 54.9 % (38.7-73.9); Platelet Count 277 T/CUMM (130-400); Red Blood Count 3.13 MC/CUMM (3.8-5.5); Red Cell Distribution Width 15.7 % (9.3-17.3); White Blood Count 9.6 T/CUMM (4-12)
[2020-09-21 06:34] LABS: Calcium 9.4 MG/DL (8.5-10.1); Osmolality,Calculated 271.5 MOS/KG (273-304)
[2020-09-21 06:58] LABS: Anisocytosis 1+; Atypical Lymphocytes Few; Band Neutrophils 2 % (0-10); Eosinophils 6 % (0-10); Lymphocytes 19 % (20-55); Macrocytosis Slight; Platelet Estimate Normal; Segmented Neutrophils 56 % (50-85); Target Cells Few; Total Cells Counted 100
[2020-09-21 06:59] LABS: Hypochromasia Slight
[2020-09-21] MEDS: carvediloL 25 MG TABLET PO SCH ×2 (09:20→17:42)
[2020-09-21] MEDS: amLODIPine 10 MG TABLET PO SCH (09:20)
[2020-09-21] MEDS: PANTOPRAZOLE 40 MG TABLET PO SCH (09:20)
[2020-09-21] MEDS: ONDANSETRON 4 MG/2 ML VIAL IV PRN (09:21)
[2020-09-21] MEDS: POLYETHYLENE GLYCOL POWDER 17 GM PACK PO SCH ×2 (09:21→20:48)
[2020-09-21] MEDS: ELVITEG COB EMTRI TENOF ALAFEN PO SCH (11:10)
[2020-09-21] MEDS: cefTRIAXone 2,000 MG in SYRINGE 1 EACH IV SCH (11:12)
[2020-09-21 12:09] LABS: Hematocrit 29.3 VOL% (42.0-52.0); Hemoglobin 10.2 GM/DL (14.0-18.0)
[2020-09-21 17:59] LABS: Hematocrit 33.5 VOL% (42.0-52.0)
[2020-09-22] MEDS: metroNIDAZOLE INJ 500 MG in PREMIX 1 EACH IV SCH (05:22)
[2020-09-22 06:09] LABS: Basophils % 0.5 % (0.0-0.8); Eosinophils # 0.3 10*3/uL (0.0-0.87); Eosinophils % 2.9 % (0.00-10.9); Hematocrit 32.2 VOL% (42.0-52.0); Hemoglobin 10.8 GM/DL (14.0-18.0); Immature Granulocytes % 0.2 %; Immature Granulocytes Absolute 0.02 #; Lymphocytes # 1.3 10*3/uL (1.4-4.0); Lymphocytes % 15.5 % (21.2-54.2); Mean Corpuscular HGB Conc 33.5 GM/DL (32-36); Monocytes % 19.2 % (1.7-12.7); Neutrophils % 61.7 % (38.7-73.9); Platelet Count 325 T/CUMM (130-400); Red Blood Count 3.66 MC/CUMM (3.8-5.5); Red Cell Distribution Width 15.4 % (9.3-17.3); White Blood Count 8.7 T/CUMM (4-12)
[2020-09-22 06:41] LABS: Band Neutrophils 1 % (0-10); Eosinophils 1 % (0-10); Hypochromasia 1+; Lymphocytes 16 % (20-55); Platelet Estimate Adequate; Segmented Neutrophils 61 % (50-85); Total Cells Counted 100
[2020-09-22 06:42] LABS: Macrocytosis Slight
[2020-09-22] MEDS: PANTOPRAZOLE 40 MG TABLET PO SCH (08:38)
[2020-09-22] MEDS: carvediloL 25 MG TABLET PO SCH (08:38)
[2020-09-22] MEDS: POLYETHYLENE GLYCOL POWDER 17 GM PACK PO SCH (08:38)
[2020-09-22] MEDS: amLODIPine 10 MG TABLET PO SCH (08:38)
[2020-09-22] MEDS: cefTRIAXone 2,000 MG in SYRINGE 1 EACH IV SCH (08:39)
[2020-09-22] MEDS: ELVITEG COB EMTRI TENOF ALAFEN PO SCH (08:46)
[2020-09-22] MEDS ORDERED: BISACODYL 5 MG TABLET PO ONE (09:00)
[2020-09-22 12:17] VITALS: BP 144/85
== END 2020-09-22 12:23 | disposition home or self-care (01) | DRG 919 ==
LOC: N.ED 08:53 → N.EDINP 11:57 → N.ICU 12:28 → N.5E 09-20 18:06
PROVIDERS: ADMIT Surgery; ATTEND Student in an Organized Health Care Education/Training Program

== ENCOUNTER 2021-11-06 03:00 | Inpatient (IN) ==
[2021-11-06] MEDS ORDERED: MORPHINE 2 MG/1 ML SYRINGE IV ONE (03:39)
[2021-11-06] MEDS ORDERED: ONDANSETRON 4 MG/2 ML VIAL IV ONE (03:39)
[2021-11-06] MEDS ORDERED: ASPIRIN 325 MG TABLET PO STA (03:39)
[2021-11-06] MEDS ORDERED: LABETALOL 20 MG/4 ML SYRINGE IV STA ×2 (03:40→05:23)
[2021-11-06 04:29] LABS: Basophils % 0.2 % (0.0-0.8); Eosinophils # 0.2 10*3/uL (0.0-0.87); Eosinophils % 2.3 % (0.00-10.9); Hematocrit 19.1 VOL% (42.0-52.0); Immature Granulocytes % 0.4 %; Immature Granulocytes Absolute 0.03 #; Mean Corpuscular HGB Conc 30.4 GM/DL (32-36); Mean Corpuscular Volume 93.2 FL (87-102); Mean Platelet Volume 9.9 FL (9.6-12.0); Monocytes % 8.1 % (1.7-12.7); Platelet Count 200 T/CUMM (130-400); Red Blood Count 2.05 MC/CUMM (3.8-5.5); Red Cell Distribution Width 15.7 % (9.3-17.3); White Blood Count 8.5 T/CUMM (4-12)
[2021-11-06] MEDS ORDERED: NITROGLYCERIN 2% OINT 1 INCH/GM PACK TOP STA (04:30)
[2021-11-06 04:31] LABS: Hemoglobin 5.8 GM/DL (14.0-18.0)
[2021-11-06] MEDS ORDERED: SODIUM CHLORIDE 0.9% 1,000 ML IV PRN ×2 (04:32→12:16)
[2021-11-06 05:04] LABS: Albumin 3.2 G/DL (3.4-5.0); Bilirubin,Total 0.6 MG/DL (0.20-1.00); Calcium 7.9 MG/DL (8.5-10.1); Osmolality,Calculated 293.2 MOS/KG (273-304); Potassium 4.6 MMOL/L (3.5-5.1); Total Protein 8.4 G/DL (6.4-8.2)
[2021-11-06] MEDS ORDERED: LABETALOL 100 MG/20 ML VIAL IV STA (05:27)
[2021-11-06] MEDS ORDERED: LABETALOL 20 MG/4 ML SYRINGE IV PRN (05:49)
[2021-11-06] MEDS ORDERED: DEXTROSE 50% 25 GM/50 ML SYRINGE IV PRN (05:49)
[2021-11-06] MEDS ORDERED: GLUCAGON 1 MG VIAL IM PRN (05:49)
[2021-11-06] MEDS ORDERED: ACETAMINOPHEN 325 MG TABLET PO PRN (05:49)
[2021-11-06] MEDS: MORPHINE 2 MG/1 ML SYRINGE IV PRN (06:26)
[2021-11-06 08:13] LABS: Risk Ratio 3.26; Thyroid Stimulating Hormone 2.08 uIU/ml (0.358-3.74); VLDL Cholesterol 14.8 MG/DL
[2021-11-06 08:25] LABS: Hematocrit 19.6 VOL% (42.0-52.0)
[2021-11-06 08:27] LABS: Hemoglobin 6.2 GM/DL (14.0-18.0)
[2021-11-06] MEDS ORDERED: INFLUENZA VIRUS VACCINE 0.5 ML SYRINGE IM ONE (08:41)
[2021-11-06] MEDS: ISOSORBIDE DINITRATE 10 MG TABLET PO SCH ×3 (11:40→21:23)
[2021-11-06] MEDS: ASPIRIN EC 81 MG TABLET PO SCH (11:40)
[2021-11-06] MEDS: hydrALAZINE 25 MG TABLET PO SCH ×3 (11:40→21:23)
[2021-11-06] MEDS: amLODIPine 10 MG TABLET PO SCH (11:40)
[2021-11-06] MEDS: carvediloL 25 MG TABLET PO SCH ×2 (11:40→21:23)
[2021-11-06] MEDS: PANTOPRAZOLE 40 MG VIAL IV SCH ×2 (11:41→21:23)
[2021-11-06] MEDS: NON-FORMULARY MEDICATION (Ferric Citrate [Auryxia] 210 mg iron tablet) PO SCH ×2 (13:15→16:56)
[2021-11-06] MEDS: ONDANSETRON 4 MG/2 ML VIAL IV PRN ×2 (14:05→19:04)
[2021-11-07 05:57] LABS: Basophils % 0.6 % (0.0-0.8); Eosinophils # 0.3 10*3/uL (0.0-0.87); Eosinophils % 4.8 % (0.00-10.9); Hematocrit 22.6 VOL% (42.0-52.0); Hemoglobin 7.2 GM/DL (14.0-18.0); Immature Granulocytes % 0.2 %; Immature Granulocytes Absolute 0.01 #; Lymphocytes # 1.3 10*3/uL (1.4-4.0); Lymphocytes % 25.1 % (21.2-54.2); Mean Corpuscular HGB Conc 31.9 GM/DL (32-36); Mean Corpuscular Volume 88.6 FL (87-102); Mean Platelet Volume 9.8 FL (9.6-12.0); Monocytes % 13.5 % (1.7-12.7); Neutrophils % 55.8 % (38.7-73.9); Platelet Count 189 T/CUMM (130-400); Red Blood Count 2.55 MC/CUMM (3.8-5.5); Red Cell Distribution Width 16.2 % (9.3-17.3); White Blood Count 5.2 T/CUMM (4-12)
[2021-11-07 06:23] LABS: Calcium 8.2 MG/DL (8.5-10.1); Osmolality,Calculated 284.1 MOS/KG (273-304); Potassium 4.5 MMOL/L (3.5-5.1)
[2021-11-07] MEDS ORDERED: PANTOPRAZOLE 40 MG TABLET PO SCH (09:00)
[2021-11-07] MEDS: ASPIRIN EC 81 MG TABLET PO SCH (09:17)
[2021-11-07] MEDS: amLODIPine 10 MG TABLET PO SCH (09:17)
[2021-11-07] MEDS: hydrALAZINE 25 MG TABLET PO SCH (09:17)
[2021-11-07] MEDS: carvediloL 25 MG TABLET PO SCH ×2 (09:17→21:12)
[2021-11-07] MEDS: ISOSORBIDE DINITRATE 10 MG TABLET PO SCH (09:17)
[2021-11-07] MEDS: PANTOPRAZOLE 40 MG VIAL IV SCH ×2 (09:18→21:15)
[2021-11-07] MEDS: NON-FORMULARY MEDICATION (Ferric Citrate [Auryxia] 210 mg iron tablet) PO SCH ×2 (11:13→17:33)
[2021-11-08 06:03] LABS: Hemoglobin 7.3 GM/DL (14.0-18.0)
[2021-11-08 06:21] LABS: Calcium 7.7 MG/DL (8.5-10.1); Osmolality,Calculated 293.8 MOS/KG (273-304); Potassium 4.7 MMOL/L (3.5-5.1)
[2021-11-08] MEDS: ISOSORBIDE MONONITRATE 30 MG TABLET PO SCH (08:41)
[2021-11-08] MEDS: PANTOPRAZOLE 40 MG VIAL IV SCH ×2 (08:41→21:08)
[2021-11-08] MEDS: amLODIPine 10 MG TABLET PO SCH (08:41)
[2021-11-08] MEDS: carvediloL 25 MG TABLET PO SCH ×2 (08:41→21:07)
[2021-11-08] MEDS ORDERED: EPOETIN ALFA-EPBX 10,000 UNIT/ML VIAL SUBCUT ONE (08:59)
[2021-11-08] MEDS ORDERED: EPOETIN ALFA-EPBX 10,000 UNIT/ML VIAL IV PRN (09:10)
[2021-11-08] MEDS: ASPIRIN EC 81 MG TABLET PO SCH (10:38)
[2021-11-08] MEDS: NON-FORMULARY MEDICATION (Ferric Citrate [Auryxia] 210 mg iron tablet) PO SCH ×3 (10:38→17:16)
[2021-11-08] MEDS: BISACODYL 5 MG TABLET PO SCH ×2 (13:19→18:30)
[2021-11-08] MEDS: ONDANSETRON 4 MG/2 ML VIAL IV PRN (14:23)
[2021-11-08] MEDS: MORPHINE 2 MG/1 ML SYRINGE IV PRN (14:50)
[2021-11-08] MEDS ORDERED: POLYETHYLENE GLYCOL 3350/ELECTROLYTES 4,000 ML BOTTLE PO ONE (16:00)
[2021-11-08] MEDS ORDERED: MAGNESIUM CITRATE 300 ML BOTTLE PO ONE (21:00)
[2021-11-09] MEDS: BISACODYL 5 MG TABLET PO SCH (02:35)
[2021-11-09 05:15] LABS: Basophils % 0.5 % (0.0-0.8); Eosinophils # 0.2 10*3/uL (0.0-0.87); Eosinophils % 2.9 % (0.00-10.9); Hematocrit 26.3 VOL% (42.0-52.0); Hemoglobin 8.3 GM/DL (14.0-18.0); Immature Granulocytes % 0.5 %; Immature Granulocytes Absolute 0.03 #; Lymphocytes # 1.7 10*3/uL (1.4-4.0); Lymphocytes % 26.9 % (21.2-54.2); Mean Corpuscular HGB Conc 31.6 GM/DL (32-36); Mean Corpuscular Volume 89.2 FL (87-102); Mean Platelet Volume 9.5 FL (9.6-12.0); Monocytes % 16.8 % (1.7-12.7); Neutrophils % 52.4 % (38.7-73.9); Platelet Count 244 T/CUMM (130-400); Red Blood Count 2.95 MC/CUMM (3.8-5.5); Red Cell Distribution Width 16.3 % (9.3-17.3); White Blood Count 6.3 T/CUMM (4-12)
[2021-11-09 05:21] LABS: Hematocrit 26.7 VOL% (42.0-52.0); Hemoglobin 8.3 GM/DL (14.0-18.0)
[2021-11-09 05:37] LABS: Calcium 8.4 MG/DL (8.5-10.1); Osmolality,Calculated 280.1 MOS/KG (273-304); Potassium 4.1 MMOL/L (3.5-5.1)
[2021-11-09 05:43] LABS: Eosinophils 4 % (0-10); Hypochromia 1+; Lymphocytes 26 % (20-55); Microcytosis 1+; Osmolality,Calculated 283.8 MOS/KG (273-304); Platelet Estimate Adequate; Potassium 4.1 MMOL/L (3.5-5.1); Segmented Neutrophils 59 % (50-85); Total Cells Counted 100
[2021-11-09] MEDS ORDERED: hydrALAZINE 20 MG/1 ML VIAL ONE (13:45)
[2021-11-09] MEDS ORDERED: LIDOCAINE 2% 5 ML VIAL ONE (13:57)
[2021-11-09] MEDS ORDERED: propofoL 200 MG/20 ML VIAL IV ONE ×2 (13:57→14:21)
[2021-11-09] MEDS ORDERED: SODIUM CHLORIDE 0.9% 1,000 ML IV SCH (14:01)
[2021-11-09] MEDS: NON-FORMULARY MEDICATION (Ferric Citrate [Auryxia] 210 mg iron tablet) PO SCH ×3 (14:58→17:18)
[2021-11-09] MEDS: ISOSORBIDE MONONITRATE 30 MG TABLET PO SCH (15:02)
[2021-11-09] MEDS: ASPIRIN EC 81 MG TABLET PO SCH (15:02)
[2021-11-09] MEDS: carvediloL 25 MG TABLET PO SCH ×2 (15:02→21:08)
[2021-11-09] MEDS: PANTOPRAZOLE 40 MG VIAL IV SCH ×2 (15:03→21:09)
[2021-11-09] MEDS: amLODIPine 10 MG TABLET PO SCH (15:03)
[2021-11-10 05:11] LABS: Basophils % 0.4 % (0.0-0.8); Eosinophils # 0.2 10*3/uL (0.0-0.87); Eosinophils % 2.3 % (0.00-10.9); Hematocrit 27.1 VOL% (42.0-52.0); Hemoglobin 8.4 GM/DL (14.0-18.0); Immature Granulocytes % 0.4 %; Immature Granulocytes Absolute 0.03 #; Lymphocytes # 1.8 10*3/uL (1.4-4.0); Lymphocytes % 22.3 % (21.2-54.2); Mean Corpuscular Volume 89.7 FL (87-102); Mean Platelet Volume 9.5 FL (9.6-12.0); Monocytes % 14.6 % (1.7-12.7); Platelet Count 273 T/CUMM (130-400); Red Blood Count 3.02 MC/CUMM (3.8-5.5); White Blood Count 7.9 T/CUMM (4-12)
[2021-11-10 05:24] LABS: Hematocrit 26.3 VOL% (42.0-52.0); Hemoglobin 8.3 GM/DL (14.0-18.0)
[2021-11-10 05:38] LABS: Osmolality,Calculated 285.8 MOS/KG (273-304); Potassium 4.6 MMOL/L (3.5-5.1)
[2021-11-10 07:49] VITALS: BP 158/91
[2021-11-10] MEDS: PANTOPRAZOLE 40 MG VIAL IV SCH (09:25)
[2021-11-10] MEDS: ASPIRIN EC 81 MG TABLET PO SCH (09:30)
[2021-11-10] MEDS: carvediloL 25 MG TABLET PO SCH (09:30)
[2021-11-10] MEDS: ISOSORBIDE MONONITRATE 30 MG TABLET PO SCH (09:30)
[2021-11-10] MEDS: amLODIPine 10 MG TABLET PO SCH (09:31)
[2021-11-10 11:01] LABS: % Iron Saturation 18.7 % (18-50)
[2021-11-10] MEDS: NON-FORMULARY MEDICATION (Ferric Citrate [Auryxia] 210 mg iron tablet) PO SCH (11:24)
== END 2021-11-10 11:38 | disposition home health service (06) | DRG 393 ==
LOC: EDBD → EDUNIT# → N.ED 03:00 → SUATTDRO 05:49 → N.EDINP 05:49 → N.TELEN 06:49
PROVIDERS: ADMIT Internal Medicine; ATTEND Internal Medicine
PROC: COLONHP (2021-11-09 07:35)

== ENCOUNTER 2021-12-15 08:28 | Inpatient (IN) ==
[2021-12-15 10:42] LABS: Basophils % 0.2 % (0.0-0.8); Eosinophils # 0.1 10*3/uL (0.0-0.87); Eosinophils % 0.9 % (0.00-10.9); Hematocrit 28.9 VOL% (42.0-52.0); Immature Granulocytes % 0.7 %; Immature Granulocytes Absolute 0.08 #; Lymphocytes # 1.6 10*3/uL (1.4-4.0); Lymphocytes % 14.7 % (21.2-54.2); Mean Corpuscular HGB Conc 31.1 GM/DL (32-36); Mean Corpuscular Volume 87.3 FL (87-102); Mean Platelet Volume 9.2 FL (9.6-12.0); Monocytes % 19.5 % (1.7-12.7); NRBC # 0.06 10*3/uL; Platelet Count 245 T/CUMM (130-400); Red Blood Count 3.31 MC/CUMM (3.8-5.5); Red Cell Distribution Width 18.1 % (9.3-17.3); White Blood Count 10.9 T/CUMM (4-12)
[2021-12-15 10:55] LABS: Alanine Aminotransferase 19 U/L (16-61); Albumin 2.8 G/DL (3.4-5.0); Alkaline Phosphatase 71 U/L (45-117); Aspartate Amino Transferase 12 U/L (0-37); Bilirubin,Total < 0.39 MG/DL (0.20-1.00); Blood Urea Nitrogen 78 MG/DL (7-18); Calcium 8.1 MG/DL (8.5-10.1); Carbon Dioxide 26 MMOL/L (21-32); Estimated Glom Filtration Rate 5 ML/MIN; Glucose 98 MG/DL (74-106); Osmolality,Calculated 292.1 MOS/KG (273-304); Potassium 4.9 MMOL/L (3.5-5.1); Sodium 135 MMOL/L (136-145); Total Protein 7.8 G/DL (6.4-8.2)
[2021-12-15 11:08] LABS: Hypochromia 1+; Lymphocytes 15 % (20-55); Microcytosis 1+; Platelet Estimate Adequate; Segmented Neutrophils 72 % (50-85); Total Cells Counted 100
[2021-12-15] MEDS ORDERED: GLUCAGON 1 MG VIAL IM PRN (12:28)
[2021-12-15] MEDS ORDERED: DEXTROSE 10% 250 ML BAG IV PRN (12:28)
[2021-12-15] MEDS ORDERED: MORPHINE 2 MG/1 ML SYRINGE IV STA (12:38)
[2021-12-15] MEDS ORDERED: MORPHINE 2 MG/1 ML SYRINGE ONE (12:42)
[2021-12-15] MEDS: ONDANSETRON 4 MG/2 ML VIAL IV PRN (12:50)
[2021-12-15] MEDS ORDERED: VANCOMYCIN INJ 500 MG in SODIUM CHLORIDE 0.9% 100 ML IV PRN (14:23)
[2021-12-15 16:13] LABS: Hepatitis B Core IgM Quant 0.19 Index; Hepatitis B Surface Ag Quant 0.13 Index; Hepatitis B Surface Ag Result Non-Reactive (NonReactive); Hepatitis C Virus Ab Result Non-Reactive (NonReactive)
[2021-12-15] MEDS: HEPARIN 5,000 UNIT/1 ML VIAL SUBCUT SCH ×2 (16:26→23:55)
[2021-12-15] MEDS: PIPERACILLIN/TAZOBACTAM 3,375 MG in SODIUM CHLORIDE 0.9% 100 ML IV SCH (16:26)
[2021-12-15] MEDS: carvediloL 25 MG TABLET PO SCH (16:26)
[2021-12-15] MEDS ORDERED: ASPIRIN 325 MG TABLET PO ONE (16:59)
[2021-12-15] MEDS ORDERED: VANCOMYCIN INJ 1,500 MG in SODIUM CHLORIDE 0.9% 500 ML IV ONE (20:00)
[2021-12-16] MEDS: PIPERACILLIN/TAZOBACTAM 3,375 MG in SODIUM CHLORIDE 0.9% 100 ML IV SCH (03:47)
[2021-12-16 06:35] LABS: Basophils % 0.2 % (0.0-0.8); Eosinophils # 0.1 10*3/uL (0.0-0.87); Eosinophils % 0.7 % (0.00-10.9); Hematocrit 27.6 VOL% (42.0-52.0); Hemoglobin 8.7 GM/DL (14.0-18.0); Immature Granulocytes % 0.7 %; Immature Granulocytes Absolute 0.08 #; Lymphocytes # 1.7 10*3/uL (1.4-4.0); Lymphocytes % 15.3 % (21.2-54.2); Mean Corpuscular HGB Conc 31.5 GM/DL (32-36); Mean Corpuscular Volume 88.5 FL (87-102); Mean Platelet Volume 9.1 FL (9.6-12.0); Monocytes % 22.3 % (1.7-12.7); NRBC # 0.04 10*3/uL; Neutrophils % 60.8 % (38.7-73.9); Platelet Count 210 T/CUMM (130-400); Red Blood Count 3.12 MC/CUMM (3.8-5.5); Red Cell Distribution Width 18.1 % (9.3-17.3); White Blood Count 10.8 T/CUMM (4-12)
[2021-12-16 07:02] LABS: Eosinophils 1 % (0-10); Hypochromia 1+; Lymphocytes 12 % (20-55); Microcytosis 1+; Ovalocytes Slight; Platelet Estimate Adequate; Segmented Neutrophils 65 % (50-85); Total Cells Counted 100
[2021-12-16 07:23] LABS: Calcium 7.8 MG/DL (8.5-10.1); Osmolality,Calculated 292.4 MOS/KG (273-304); Potassium 5.4 MMOL/L (3.5-5.1); Thyroid Stimulating Hormone 1.36 uIU/ml (0.358-3.74)
[2021-12-16] MEDS: PANTOPRAZOLE 40 MG TABLET PO SCH (08:46)
[2021-12-16] MEDS: ASPIRIN EC 81 MG TABLET PO SCH (08:46)
[2021-12-16] MEDS: carvediloL 25 MG TABLET PO SCH ×2 (08:46→16:43)
[2021-12-16] MEDS: ISOSORBIDE MONONITRATE 30 MG TABLET PO SCH (08:46)
[2021-12-16] MEDS: amLODIPine 10 MG TABLET PO SCH (08:47)
[2021-12-16] MEDS ORDERED: LIDOCAINE 1% 20 ML VIAL MISC INJ ONE (08:58)
[2021-12-16] MEDS: ONDANSETRON 4 MG/2 ML VIAL IV PRN ×2 (09:07→18:26)
[2021-12-16 09:42] LABS: Cholesterol Crystals None Seen /LPF
[2021-12-16 09:45] LABS: Lymphocytes,Synovial Fluid 8 %; Neutrophils,Synovial Fluid 85 %
[2021-12-16] MEDS ORDERED: VANCOMYCIN INJ 500 MG in SODIUM CHLORIDE 0.9% 100 ML IV PRN (10:49)
[2021-12-16] MEDS: HEPARIN 5,000 UNIT/1 ML VIAL SUBCUT SCH ×2 (14:56→23:40)
[2021-12-16] MEDS: ACETAMINOPHEN 325 MG TABLET PO PRN (17:25)
[2021-12-17] MEDS ORDERED: VANCOMYCIN INJ 500 MG in SODIUM CHLORIDE 0.9% 100 ML IV ONE (08:00)
[2021-12-17] MEDS: amLODIPine 10 MG TABLET PO SCH (09:25)
[2021-12-17] MEDS: ASPIRIN EC 81 MG TABLET PO SCH (09:25)
[2021-12-17] MEDS: PANTOPRAZOLE 40 MG TABLET PO SCH (09:25)
[2021-12-17] MEDS: carvediloL 25 MG TABLET PO SCH ×2 (09:25→16:29)
[2021-12-17] MEDS: ONDANSETRON 4 MG/2 ML VIAL IV PRN ×2 (09:25→19:39)
[2021-12-17] MEDS: ISOSORBIDE MONONITRATE 30 MG TABLET PO SCH (09:26)
[2021-12-17] MEDS: HEPARIN 5,000 UNIT/1 ML VIAL SUBCUT SCH ×2 (13:17→23:41)
[2021-12-17] MEDS ORDERED: PROMETHAZINE 25 MG/1 ML VIAL IM ONE (20:39)
[2021-12-18 08:04] LABS: Basophils % 0.2 % (0.0-0.8); Eosinophils # 0.1 10*3/uL (0.0-0.87); Eosinophils % 1.5 % (0.00-10.9); Hematocrit 28.3 VOL% (42.0-52.0); Hemoglobin 8.8 GM/DL (14.0-18.0); Immature Granulocytes % 0.4 %; Immature Granulocytes Absolute 0.04 #; Lymphocytes # 1.9 10*3/uL (1.4-4.0); Lymphocytes % 19.7 % (21.2-54.2); Mean Corpuscular HGB Conc 31.1 GM/DL (32-36); Mean Platelet Volume 9.2 FL (9.6-12.0); Monocytes % 19.2 % (1.7-12.7); Platelet Count 227 T/CUMM (130-400); Red Blood Count 3.18 MC/CUMM (3.8-5.5); White Blood Count 9.6 T/CUMM (4-12)
[2021-12-18 08:21] LABS: Calcium 8.1 MG/DL (8.5-10.1); Osmolality,Calculated 283.4 MOS/KG (273-304); Potassium 4.7 MMOL/L (3.5-5.1)
[2021-12-18] MEDS: PANTOPRAZOLE 40 MG TABLET PO SCH (08:32)
[2021-12-18] MEDS: carvediloL 25 MG TABLET PO SCH ×2 (08:32→17:44)
[2021-12-18] MEDS: ISOSORBIDE MONONITRATE 30 MG TABLET PO SCH (08:32)
[2021-12-18] MEDS: ASPIRIN EC 81 MG TABLET PO SCH (08:32)
[2021-12-18] MEDS: amLODIPine 10 MG TABLET PO SCH (08:32)
[2021-12-18 09:00] LABS: Atypical Lymphocytes Few; Band Neutrophils 1 % (0-10); Eosinophils 2 % (0-10); Lymphocytes 20 % (20-55); Segmented Neutrophils 62 % (50-85); Total Cells Counted 100
[2021-12-18 09:01] LABS: Hypochromia 1+; Microcytosis 1+; Ovalocytes Slight; Platelet Estimate Normal; Polychromasia Slight
[2021-12-18 09:26] LABS: Sedimentation Rate-Westergren 100 MM/HR (0-15)
[2021-12-18] MEDS: HEPARIN 5,000 UNIT/1 ML VIAL SUBCUT SCH (13:10)
[2021-12-18] MEDS: ONDANSETRON 4 MG/2 ML VIAL IV PRN ×2 (15:22→21:09)
[2021-12-18] MEDS: ACETAMINOPHEN 325 MG TABLET PO PRN (15:22)
[2021-12-18] MEDS ORDERED: VANCOMYCIN INJ 500 MG in SODIUM CHLORIDE 0.9% 100 ML IV ONE (17:00)
[2021-12-18] MEDS ORDERED: KETOROLAC 30 MG/1 ML VIAL IV ONE (17:22)
[2021-12-18] MEDS: AMPICILLIN/SULBACTAM 3,000 MG in SODIUM CHLORIDE 0.9% 100 ML IV SCH (17:44)
[2021-12-19] MEDS: HEPARIN 5,000 UNIT/1 ML VIAL SUBCUT SCH ×2 (00:02→12:42)
[2021-12-19 05:41] LABS: Basophils % 0.1 % (0.0-0.8); Eosinophils # 0.1 10*3/uL (0.0-0.87); Hematocrit 29.2 VOL% (42.0-52.0); Hemoglobin 8.9 GM/DL (14.0-18.0); Immature Granulocytes % 0.5 %; Immature Granulocytes Absolute 0.05 #; Lymphocytes # 1.5 10*3/uL (1.4-4.0); Lymphocytes % 16.1 % (21.2-54.2); Mean Corpuscular HGB Conc 30.5 GM/DL (32-36); Mean Corpuscular Volume 88.8 FL (87-102); Mean Platelet Volume 9.6 FL (9.6-12.0); Monocytes % 18.1 % (1.7-12.7); Neutrophils % 64.2 % (38.7-73.9); Platelet Count 233 T/CUMM (130-400); Red Blood Count 3.29 MC/CUMM (3.8-5.5); Red Cell Distribution Width 17.9 % (9.3-17.3); White Blood Count 9.6 T/CUMM (4-12)
[2021-12-19] MEDS: AMPICILLIN/SULBACTAM 3,000 MG in SODIUM CHLORIDE 0.9% 100 ML IV SCH ×2 (05:46→17:06)
[2021-12-19 06:03] LABS: Calcium 7.7 MG/DL (8.5-10.1); Potassium 4.4 MMOL/L (3.5-5.1)
[2021-12-19 07:16] LABS: Eosinophils 2 % (0-10); Lymphocytes 11 % (20-55); Metamyelocytes 1 %; Segmented Neutrophils 74 % (50-85); Total Cells Counted 100
[2021-12-19 07:17] LABS: Hypochromia 3+; Platelet Estimate Normal; Target Cells Few
[2021-12-19 07:18] LABS: Burr Cells 1+; Ovalocytes 1+
[2021-12-19] MEDS: NICOTINE 21 MG/24 HR PATCH TRANSDERM SCH (08:54)
[2021-12-19] MEDS: ISOSORBIDE MONONITRATE 30 MG TABLET PO SCH (08:55)
[2021-12-19] MEDS: MELOXICAM 7.5 MG TABLET PO SCH (08:55)
[2021-12-19] MEDS: ASPIRIN EC 81 MG TABLET PO SCH (08:55)
[2021-12-19] MEDS: PANTOPRAZOLE 40 MG TABLET PO SCH (08:55)
[2021-12-19] MEDS: amLODIPine 10 MG TABLET PO SCH (08:55)
[2021-12-19] MEDS: carvediloL 25 MG TABLET PO SCH ×2 (08:56→17:06)
[2021-12-19] MEDS ORDERED: COLCHICINE 0.6 MG CAPSULE PO ONE (09:46)
[2021-12-19] MEDS: ONDANSETRON 4 MG/2 ML VIAL IV PRN (14:47)
[2021-12-19] MEDS ORDERED: KETOROLAC 30 MG/1 ML VIAL IV ONE (23:30)
[2021-12-20] MEDS: HEPARIN 5,000 UNIT/1 ML VIAL SUBCUT SCH ×2 (02:32→13:57)
[2021-12-20] MEDS: AMPICILLIN/SULBACTAM 3,000 MG in SODIUM CHLORIDE 0.9% 100 ML IV SCH (05:50)
[2021-12-20 06:23] LABS: Calcium 7.6 MG/DL (8.5-10.1); Osmolality,Calculated 283.2 MOS/KG (273-304); Potassium 4.6 MMOL/L (3.5-5.1)
[2021-12-20] MEDS: ISOSORBIDE MONONITRATE 30 MG TABLET PO SCH (09:06)
[2021-12-20] MEDS: NICOTINE 21 MG/24 HR PATCH TRANSDERM SCH (09:06)
[2021-12-20] MEDS: ASPIRIN EC 81 MG TABLET PO SCH (09:06)
[2021-12-20] MEDS: MELOXICAM 7.5 MG TABLET PO SCH (09:06)
[2021-12-20] MEDS: amLODIPine 10 MG TABLET PO SCH (09:06)
[2021-12-20] MEDS: carvediloL 25 MG TABLET PO SCH ×2 (09:06→18:04)
[2021-12-20] MEDS: PANTOPRAZOLE 40 MG TABLET PO SCH (09:06)
[2021-12-20 09:46] LABS: Basophils % 0.5 % (0.2-1.0); Eosinophils # 0.2 # (0.0-0.70); Hematocrit 27.3 VOL% (42.0-52.0); Hemoglobin 8.6 GM/DL (14.0-18.0); Lymphocytes # 1.5 # (1.3-2.9); Lymphocytes % 18.8 % (20.5-45.5); Mean Corpuscular HGB Conc 31.5 GM/DL (32-36); Mean Corpuscular Volume 87.2 FL (80-94); Mean Platelet Volume 9.3 FL (7.4-10.4); Monocytes % 16.4 % (5.5-11.7); Neutrophils % 62.1 % (43.0-65.0); Platelet Count 231 T/CUMM (130-400); Red Blood Count 3.13 MC/CUMM (4.70-6.10); Red Cell Distribution Width 18.1 % (11.5-15.5); White Blood Count 8.1 T/CUMM (4.8-10.8)
[2021-12-20] MEDS ORDERED: LIDOCAINE 1% 20 ML VIAL MISC INJ ONE (14:36)
[2021-12-20] MEDS ORDERED: HYDROCORTISONE 100 MG VIAL IM ONE (14:37)
[2021-12-20] MEDS: ONDANSETRON 4 MG/2 ML VIAL IV PRN (16:00)
[2021-12-20] MEDS ORDERED: AMPICILLIN INJ 2,000 MG in SODIUM CHLORIDE 0.9% 100 ML IV SCH (17:00)
[2021-12-20] MEDS ORDERED: ONDANSETRON 4 MG/2 ML VIAL IV ONE (18:08)
[2021-12-20] MEDS ORDERED: PROMETHAZINE 25 MG TABLET PO ONE (18:08)
[2021-12-21] MEDS: HEPARIN 5,000 UNIT/1 ML VIAL SUBCUT SCH ×2 (00:29→12:45)
[2021-12-21 06:34] LABS: Basophils % 0.3 % (0.0-0.8); Eosinophils # 0.1 10*3/uL (0.0-0.87); Eosinophils % 0.9 % (0.00-10.9); Hematocrit 26.7 VOL% (42.0-52.0); Hemoglobin 8.2 GM/DL (14.0-18.0); Immature Granulocytes % 0.5 %; Immature Granulocytes Absolute 0.04 #; Lymphocytes # 1.1 10*3/uL (1.4-4.0); Lymphocytes % 14.2 % (21.2-54.2); Mean Corpuscular HGB Conc 30.7 GM/DL (32-36); Mean Corpuscular Volume 87.5 FL (87-102); Mean Platelet Volume 9.5 FL (9.6-12.0); Monocytes % 10.8 % (1.7-12.7); Neutrophils % 73.3 % (38.7-73.9); Platelet Count 268 T/CUMM (130-400); Red Blood Count 3.05 MC/CUMM (3.8-5.5); Red Cell Distribution Width 17.8 % (9.3-17.3); White Blood Count 7.7 T/CUMM (4-12)
[2021-12-21 06:49] LABS: Calcium 7.4 MG/DL (8.5-10.1); Osmolality,Calculated 283.7 MOS/KG (273-304); Potassium 5.8 MMOL/L (3.5-5.1)
[2021-12-21] MEDS: MELOXICAM 7.5 MG TABLET PO SCH (08:32)
[2021-12-21] MEDS: carvediloL 25 MG TABLET PO SCH (08:32)
[2021-12-21] MEDS: ISOSORBIDE MONONITRATE 30 MG TABLET PO SCH (08:32)
[2021-12-21] MEDS: ASPIRIN EC 81 MG TABLET PO SCH (08:32)
[2021-12-21] MEDS: amLODIPine 10 MG TABLET PO SCH (08:32)
[2021-12-21] MEDS: PANTOPRAZOLE 40 MG TABLET PO SCH (08:32)
[2021-12-21] MEDS: NICOTINE 21 MG/24 HR PATCH TRANSDERM SCH (08:34)
[2021-12-21 12:22] VITALS: BP 111/68
[2021-12-21 14:40] LABS: Calcium 7.9 MG/DL (8.5-10.1); Osmolality,Calculated 280.8 MOS/KG (273-304)
== END 2021-12-21 16:00 | disposition home or self-care (01) | DRG 553 ==
LOC: N.EDINP 08:28 → N.ED 08:28 → SUATTDRO 12:28 → N.3E 13:21 → SUATTDRO 12-17 09:10
PROVIDERS: ADMIT Internal Medicine; ATTEND Internal Medicine

== ENCOUNTER 2022-05-24 02:00 | Observation (INO) ==
[2022-05-24] MEDS ORDERED: NITROGLYCERIN 2% OINT 1 INCH/GM PACK TOP ONE (02:19)
[2022-05-24 02:24] LABS: Basophils % 0.3 % (0.0-0.8); Eosinophils # 0.1 10*3/uL (0.0-0.87); Hematocrit 32.1 VOL% (42.0-52.0); Immature Granulocytes % 0.3 %; Immature Granulocytes Absolute 0.02 #; Lymphocytes # 1.2 10*3/uL (1.4-4.0); Mean Corpuscular HGB Conc 31.2 GM/DL (32-36); Mean Corpuscular Volume 87.2 FL (87-102); Mean Platelet Volume 10.1 FL (9.6-12.0); Monocytes # 0.8 10*3/uL (0.11-0.8); Neutrophils % 70.4 % (38.7-73.9); Platelet Count 161 T/CUMM (130-400); Red Blood Count 3.68 MC/CUMM (3.8-5.5); Red Cell Distribution Width 16.1 % (9.3-17.3); White Blood Count 7.2 T/CUMM (4-12)
[2022-05-24] MEDS ORDERED: NITROGLYCERIN 2% OINT 1 INCH/GM PACK TOP STA (02:27)
[2022-05-24 02:36] LABS: INR 1.2
[2022-05-24] MEDS ORDERED: ONDANSETRON 4 MG/2 ML VIAL IV ONE (02:45)
[2022-05-24] MEDS ORDERED: MORPHINE 2 MG/1 ML SYRINGE IV STA (02:45)
[2022-05-24] MEDS ORDERED: hydrALAZINE 20 MG/1 ML VIAL IV STA ×2 (02:45→05:12)
[2022-05-24 03:01] LABS: Albumin 3.4 G/DL (3.4-5.0); Bilirubin,Total 0.5 MG/DL (0.20-1.00); Calcium 7.7 MG/DL (8.5-10.1); Osmolality,Calculated 293.7 MOS/KG (273-304); Total Protein 8.7 G/DL (6.4-8.2)
[2022-05-24 03:05] LABS: Potassium 6.8 MMOL/L (3.5-5.1)
[2022-05-24] MEDS ORDERED: DEXTROSE 50% 25 GM/50 ML VIAL IV STA (03:09)
[2022-05-24] MEDS ORDERED: INSULIN REGULAR 100 UNIT/ML IV STA (03:09)
[2022-05-24] MEDS ORDERED: DEXTROSE 50% 25 GM/50 ML SYRINGE IV STA (03:12)
[2022-05-24] MEDS ORDERED: ACETAMINOPHEN 500 MG TABLET PO STA (03:13)
[2022-05-24] MEDS ORDERED: ACETAMINOPHEN 325 MG TABLET PO PRN (03:45)
[2022-05-24] MEDS ORDERED: GLUCAGON 1 MG VIAL IM PRN (03:45)
[2022-05-24] MEDS ORDERED: ONDANSETRON 4 MG/2 ML VIAL IV PRN (03:45)
[2022-05-24] MEDS ORDERED: hydrALAZINE 20 MG/1 ML VIAL IV PRN (03:45)
[2022-05-24] MEDS ORDERED: cloNIDine 0.1 MG TABLET ONE (03:48)
[2022-05-24] MEDS ORDERED: LABETALOL 20 MG/4 ML SYRINGE IV ONE (03:48)
[2022-05-24] MEDS ORDERED: cloNIDine 0.1 MG TABLET PO PRN (03:56)
[2022-05-24] MEDS ORDERED: LABETALOL 20 MG/4 ML SYRINGE IV STA (04:15)
[2022-05-24] MEDS ORDERED: cloNIDine 0.1 MG TABLET PO STA (04:17)
[2022-05-24] MEDS ORDERED: DEXTROSE 10% 250 ML BAG IV PRN (04:29)
[2022-05-24] MEDS ORDERED: ALBUTEROL INHALER 18 GM INH PRN (04:49)
[2022-05-24] MEDS ORDERED: AZITHROMYCIN INJ 500 MG in SODIUM CHLORIDE 0.9% 250 ML IV ONE (05:26)
[2022-05-24] MEDS: traMADol 50 MG TABLET PO PRN (06:45)
[2022-05-24] MEDS: HEPARIN 5,000 UNIT/1 ML VIAL SUBCUT SCH ×3 (06:47→22:23)
[2022-05-24] MEDS ORDERED: ELVITEG COB EMTRI TENOF ALAFEN PO SCH (09:00)
[2022-05-24] MEDS: DEXAMETHASONE 4 MG/1 ML VIAL IV SCH (10:00)
[2022-05-24] MEDS: ASCORBIC ACID 500 MG TABLET PO SCH ×2 (10:02→22:23)
[2022-05-24] MEDS: carvediloL 25 MG TABLET PO SCH ×2 (10:02→22:23)
[2022-05-24] MEDS: amLODIPine 10 MG TABLET PO SCH (10:02)
[2022-05-24] MEDS: ISOSORBIDE MONONITRATE 30 MG TABLET PO SCH (10:02)
[2022-05-24] MEDS: PANTOPRAZOLE 40 MG TABLET PO SCH (10:03)
[2022-05-24] MEDS: MELOXICAM 7.5 MG TABLET PO SCH (10:03)
[2022-05-24] MEDS: ZINC GLUCONATE 50 MG TABLET PO SCH (10:03)
[2022-05-24] MEDS: ASPIRIN EC 81 MG TABLET PO SCH (10:03)
[2022-05-24] MEDS: DOCUSATE SODIUM 100 MG CAPSULE PO SCH ×2 (10:03→22:23)
[2022-05-24] MEDS: MORPHINE 2 MG/1 ML SYRINGE IV PRN ×2 (10:04→14:38)
[2022-05-24] MEDS: CHOLECALCIFEROL 1,000 UNIT TABLET PO SCH (10:06)
[2022-05-24] MEDS: NON-FORMULARY MEDICATION (Ferric Citrate [Auryxia] 210 mg iron tablet) PO SCH ×3 (10:18→16:33)
[2022-05-25] MEDS: HEPARIN 5,000 UNIT/1 ML VIAL SUBCUT SCH (05:01)
[2022-05-25 05:42] LABS: Basophils % 0.3 % (0.0-0.8); Hematocrit 30.4 VOL% (42.0-52.0); Immature Granulocytes % 0.3 %; Immature Granulocytes Absolute 0.01 #; Lymphocytes # 1.1 10*3/uL (1.4-4.0); Lymphocytes % 31.3 % (21.2-54.2); Mean Corpuscular HGB Conc 32.9 GM/DL (32-36); Mean Corpuscular Volume 85.2 FL (87-102); Mean Platelet Volume 10.4 FL (9.6-12.0); Monocytes # 0.8 10*3/uL (0.11-0.8); Monocytes % 23.6 % (1.7-12.7); Neutrophils % 44.5 % (38.7-73.9); Platelet Count 179 T/CUMM (130-400); Red Blood Count 3.57 MC/CUMM (3.8-5.5); Red Cell Distribution Width 16.3 % (9.3-17.3); White Blood Count 3.5 T/CUMM (4-12)
[2022-05-25 05:51] LABS: INR 1.2; PT Patient Result 12.8 SECS (10.5-12.0)
[2022-05-25 06:06] LABS: Eosinophils 1 % (0-10); Lymphocytes 27 % (20-55); Platelet Estimate Adequate; Total Cells Counted 100
[2022-05-25 06:07] LABS: Hypochromia Slight; Microcytosis Slight
[2022-05-25 06:11] LABS: Bilirubin,Total 0.5 MG/DL (0.20-1.00); Calcium 7.7 MG/DL (8.5-10.1); Potassium 5.8 MMOL/L (3.5-5.1)
[2022-05-25 06:17] LABS: Calcium 7.6 MG/DL (8.5-10.1); Osmolality,Calculated 287.2 MOS/KG (273-304); Potassium 5.8 MMOL/L (3.5-5.1)
[2022-05-25] MEDS ORDERED: AZITHROMYCIN 250 MG TABLET PO SCH (09:00)
[2022-05-25] MEDS ORDERED: ELVITEG COB EMTRI TENOF ALAFEN PO SCH (09:00)
[2022-05-25] MEDS: ISOSORBIDE MONONITRATE 30 MG TABLET PO SCH (09:15)
[2022-05-25] MEDS: traMADol 50 MG TABLET PO PRN (09:15)
[2022-05-25] MEDS: CHOLECALCIFEROL 1,000 UNIT TABLET PO SCH (09:15)
[2022-05-25] MEDS: amLODIPine 10 MG TABLET PO SCH (09:16)
[2022-05-25] MEDS: MELOXICAM 7.5 MG TABLET PO SCH (09:16)
[2022-05-25] MEDS: ASCORBIC ACID 500 MG TABLET PO SCH (09:16)
[2022-05-25] MEDS: PANTOPRAZOLE 40 MG TABLET PO SCH (09:16)
[2022-05-25] MEDS: ZINC GLUCONATE 50 MG TABLET PO SCH (09:16)
[2022-05-25] MEDS: DOCUSATE SODIUM 100 MG CAPSULE PO SCH (09:17)
[2022-05-25] MEDS: DEXAMETHASONE 4 MG/1 ML VIAL IV SCH (09:17)
[2022-05-25] MEDS: ASPIRIN EC 81 MG TABLET PO SCH (09:17)
[2022-05-25] MEDS: carvediloL 25 MG TABLET PO SCH (09:17)
[2022-05-25] MEDS: NON-FORMULARY MEDICATION (Ferric Citrate [Auryxia] 210 mg iron tablet) PO SCH ×2 (09:18→12:54)
[2022-05-25] MEDS ORDERED: SODIUM POLYSTYRENE SULFATE 15 GM/60 ML BOTTLE PO ONE (10:00)
[2022-05-25 11:51] VITALS: BP 155/81
== END 2022-05-25 13:14 | disposition home or self-care (01) ==
LOC: SUATTDRO → N.EDINP 02:00 → N.ED 02:00 → SUATTDRO 06:05 → N.5E 06:58
PROVIDERS: ADMIT Internal Medicine; ATTEND Internal Medicine